=== PATIENT | female | born 1960 | race Caucasian/White ===

== ENCOUNTER → 2017-08-01 | Day surgery (SDC) | payer MEDICAID ==
[~2017-08-01] MED LIST: Lactated Ringers 1,000 ML IV SCH; Midazolam 1 MG/ML 2 ML SDV ONE; Propofol 200 MG/20 ML SDV ONE; fentaNYL 100 MCG/2 ML SDV ONE
[2017-08-01 09:43] VITALS: BP 136/75
--- NOTE | 2017-08-02 07:45 | OR ---
DATE OF PROCEDURE: 08/01/2017 PREOPERATIVE DIAGNOSIS: History of colon polyps. POSTOPERATIVE DIAGNOSES: Diverticulosis, history of colon polyps. PROCEDURE: Colonoscopy to the cecum. SURGEON: Jarad Morton MD. ANESTHESIA: IV anesthesia with monitored anesthesia care. INDICATION: This 57-year-old white female is referred for a colonoscopy. She has a history of colon polyps. Apparently, her last colonoscopic exam was done in 2012. I counseled her for the procedure including the risks and alternatives, and she gave her informed consent to proceed. DESCRIPTION OF PROCEDURE: The patient was placed in the left lateral decubitus position. IV anesthesia was administered by the Anesthesia Service. Time-out was held. A rectal exam was performed, which was unremarkable. The flexible video Olympus colonoscope was introduced through her anus, up her rectum, and out her colon all the way to the cecum. En route, we saw several left-sided diverticula. There was no bleeding or inflammation associated with any of them. Once the cecum was reached, the scope was slowly withdrawn, examining the mucosa throughout. No additional mucosal abnormalities were noted. The scope was retroflexed in the rectum with the distal rectum appearing unremarkable. The scope was straightened and removed. She tolerated the procedure well. Jarad Morton MD /[id number] MTDD
== END ==
LOC: JP.SDS 07:08
PROVIDERS: ATTEND Surgery
DX: Z12.11 Encounter for screening for malignant neoplasm of colon (principal); K57.30 Diverticulosis of large intestine without perforation or abscess without bleeding; Z86.010 Personal history of colon polyps; I10 Essential (primary) hypertension; E11.9 Type 2 diabetes mellitus without complications
CPT/HCPCS: 45378; J2250; J2704; J3010; J7120

== ENCOUNTER 2019-05-21 08:12 | Inpatient (IN) | payer MEDICAID ==
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
[2019-05-21] MEDS ORDERED: Acetaminophen/oxyCODONE 325-5 MG Tab PO ONE (10:28)
[2019-05-21] MEDS ORDERED: Insulin Regular, Human 100 Units/ML 3 ML Vial SUBCUT ONE (10:28)
[2019-05-21] MEDS ORDERED: Piperacillin/Tazobactam 3.375 GM in Sodium Chloride 0.9% 50 ML IV SCH (10:30)
--- NOTE | 2019-05-21 10:35 | US ---
VL Duplex Lwr Ext Veins Ltd Lt INDICATION: red swollen left leg. FINDINGS: Ultrasound examination of the lower extremity using Doppler and compressive technique demonstrates that the common femoral, femoral, and popliteal veins are patent, and negative for thrombus. The calf veins were segmentally visualized and are negative where seen. IMPRESSION: Negative for deep venous thrombosis.
--- NOTE | 2019-05-21 11:17 | PCM.HP ---
H&P History of Present Illness - General Date of Service: 05/21/19 Admit Problem/Dx: Admission Diagnosis/Problem Admission Diagnosis/Problem Cellulitis Source of Information: Patient, Provider, RN Notes Reviewed History Limitations: Reports: No Limitations - History of Present Illness Initial Comments - Free Text/Narative: Ms. Tom is a 59-year-old woman who was admitted through the emergency department with cellulitis of her right lower leg. Cellulitis has been present now for over a week and she has failed to outpatient courses of antibiotics with Augmentin and Septra. Despite oral antibiotic therapy there has been some progression in increased pain in the area of cellulitis. She has become progressively more weak and has experienced intermittent fevers and chills. White blood cell count is only modestly elevated but there is significant elevation in CRP. She does have known long-standing underlying diabetes mellitus. Left Lower Leg Pain Score (Numeric/FACES): 4 - Related Data Allergies/Adverse Reactions: Allergies Allergy/AdvReac Type Severity Reaction Status Date / Time morphine Allergy Nausea and Verified 05/21/19 08:28 Vomiting Home Medications: Home Meds Acetaminophen/Caffeine [Excedrin Tension Headache] 2 tab PO ASDIRECTED PRN 07/06 [History] metFORMIN [Glucophage] 1,000 mg PO BIDM 07/06/13 [History] Cholecalciferol (Vitamin D3) [Vitamin D3] 1,000 unit PO DAILY 07/28/17 [History] Losartan [Cozaar] 50 mg PO DAILY 07/28/17 [History] Simvastatin [Zocor] 40 mg PO DAILY 07/28/17 [History] Past Medical History HEENT History: Reports: None Cardiovascular History: Reports: Blood Clots/VTE/DVT, High Cholesterol, Hypertension Other Cardiovascular History: BLOOD CLOT HISTORY IN LEFT LEG SEVERAL YEARS AGO Respiratory History: Reports: None Gastrointestinal History: Reports: Colon Polyp 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: Reports: Renal Calculus PATHOLOGIST History: Reports: 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 History: Reports: None Neurological History: Reports: Migraines Psychiatric History: Reports: None Endocrine/Metabolic History: Reports: Diabetes, Type II Hematologic History: Reports: None Immunologic History: Reports: None Oncologic (Cancer) History: Reports: None Dermatologic History: Reports: None - Infectious Disease History Infectious Disease History: Reports: Chicken Pox - Past Surgical History HEENT Surgical History: Reports: None Cardiovascular Surgical History: Reports: None GI Surgical History: Reports: Colonoscopy Female Surgical History: Reports: Kidney stone extraction Other Female Surgeries/Procedures: BLASTED MY KIDNEY STONE Endocrine Surgical History: Reports: None Neurological Surgical History: Reports: None 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 Surgical History: Reports: None Social & Family History - Family History Family Medical History: Noncontributory - Tobacco Use Smoking Status *Q: Never Smoker - Caffeine Use Caffeine Use: Reports: Soda - Recreational Drug Use Recreational Drug Use: No H&P Review of Systems - Review of Systems: Review Of Systems: See Below General: Reports: Fever, Chills, Weakness, Fatigue, Decreased Appetite HEENT: Reports: No Symptoms Pulmonary: Reports: No Symptoms Cardiovascular: Reports: No Symptoms Gastrointestinal: Reports: No Symptoms 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: Reports: No Symptoms 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: Reports: No Symptoms Skin: Reports: Other (Erythema and tenderness right lower leg) Psychiatric: Reports: No Symptoms Neurological: Reports: No Symptoms Hematologic/Lymphatic: Reports: No Symptoms Immunologic: Reports: No Symptoms Exam - Exam Exam: See Below - Vital Signs Vital Signs: Last Vital Signs Temp 96.2 F 05/21/19 08:24 Pulse 105 H 05/21/19 10:53 Resp 16 05/21/19 10:53 BP 163/85 H 05/21/19 10:53 Pulse Ox 99 05/21/19 10:53 Weight: 192 lb 10.944 oz - Exam Quality Assessment: DVT Prophylaxis General: Alert, Oriented, Cooperative, Moderate Distress HEENT: Conjunctiva Clear, Hearing Intact, Mucosa Moist & [place], Normal Nasal Septum, Posterior Pharynx Clear, Pupils Equal Neck: Supple, Trachea Midline, +2 Carotid Pulse wo Bruit Lungs: Clear to Auscultation, Normal Respiratory Effort Cardiovascular: Regular Rate, Regular Rhythm, Normal S1, Normal S2. No: Systolic Murmur, Diastolic Murmur GI/Abdominal Exam: Soft, Non-Tender, No Organomegaly, No Distention Extremities: Increased Warmth, Redness Skin: Other (Intense erythema around the midportion of the right lower leg, 2 areas of palpable possible fluctuance with increased pain) Neurological: Cranial Nerves Intact, Strength Equal Bilateral, Normal Speech, Normal Tone, Sensation Intact. No: Focal Deficit Neuro Extensive - Mental Status: Alert, Oriented x3, Normal Mood/Affect, Normal Cognition, Memory Intact - Patient Data Lab Results Last 24 hrs: Laboratory Results - last 24 hr 05/21/19 05/21/19 05/21/19 Range/Units 08:43 08:43 08:43 WBC 11.0 (4.5-11.0) K/uL RBC 4.74 (3.30-5.50) M/uL Hgb 13.3 (12.0-15.0) g/dL Hct 41.2 (36.0-48.0) % MCV 87 (80-98) fL MCH 28 (27-31) pg MCHC 32 (32-36) % Plt Count 349 (150-400) K/uL Neut % (Auto) 77 H (36-66) % Lymph % (Auto) 15 L (24-44) % [place] % (Auto) 5 (2-6) % Eos % (Auto) 3 (2-4) % Baso % (Auto) 0 (0-1) % Sodium 134 L (140-148) mmol/L Potassium 4.2 (3.6-5.2) mmol/L Chloride 99 L (100-108) mmol/L Carbon Dioxide 23 (21-32) mmol/L Anion Gap 16.2 H (5.0-14.0) mmol/L BUN 12 (7-18) mg/dL Creatinine 1.0 (0.6-1.0) mg/dL Est Cr Clr Drug Dosing 47.32 mL/min Estimated GFR (MDRD) 57 L (>60) Glucose 345 H (74-106) mg/dL Lactic Acid (0.4-2.0) mmol/L Calcium 9.3 (8.5-10.1) mg/dL Total Bilirubin 0.3 (0.2-1.0) mg/dL AST 8 L (15-37) U/L ALT 6 L (12-78) U/L Alkaline Phosphatase 127 H (46-116) U/L C-Reactive Protein 11.62 H (0.0-0.3) mg/dL Total Protein 8.2 (6.4-8.2) g/dL Albumin 2.8 L (3.4-5.0) g/dL Globulin 5.4 H (2.3-3.5) g/dL Albumin/Globulin Ratio 0.5 L (1.2-2.2) 05/21/19 Range/Units 08:43 WBC (4.5-11.0) K/uL RBC (3.30-5.50) M/uL Hgb (12.0-15.0) g/dL Hct (36.0-48.0) % MCV (80-98) fL MCH (27-31) pg MCHC (32-36) % Plt Count (150-400) K/uL Neut % (Auto) (36-66) % Lymph % (Auto) (24-44) % [place] % (Auto) (2-6) % Eos % (Auto) (2-4) % Baso % (Auto) (0-1) % Sodium (140-148) mmol/L Potassium (3.6-5.2) mmol/L Chloride (100-108) mmol/L Carbon Dioxide (21-32) mmol/L Anion Gap (5.0-14.0) mmol/L BUN (7-18) mg/dL Creatinine (0.6-1.0) mg/dL Est Cr Clr Drug Dosing mL/min Estimated GFR (MDRD) (>60) Glucose (74-106) mg/dL Lactic Acid 1.8 (0.4-2.0) mmol/L Calcium (8.5-10.1) mg/dL Total Bilirubin (0.2-1.0) mg/dL AST (15-37) U/L ALT (12-78) U/L Alkaline Phosphatase (46-116) U/L C-Reactive Protein (0.0-0.3) mg/dL Total Protein (6.4-8.2) g/dL Albumin (3.4-5.0) g/dL Globulin (2.3-3.5) g/dL Albumin/Globulin Ratio (1.2-2.2) Result Diagrams: 05/21/19 08:43 05/21/19 08:43 *Q Meaningful Use (ADM) - VTE Risk Assess *Q Each Risk Factor Represents 1 Point: Obesity ( BMI > 25 kg/m2) Total Score 1 Point Risk Factors: 1 Each Risk Factor Represents 2 Points: Age 60 - 74 Years Total Score 2 Point Risk Factors: 2 Each Risk Factor Represents 3 Points: None Total Score 3 Point Risk Factors: 0 Each Risk Factor Represents 5 Points: None Total Score 5 Point Risk Factors: 0 Venous Thromboembolism Risk Factor Score *Q: 3 Problem List Initiated/Reviewed/Updated: Yes Orders Last 24hrs: Active Orders 24 hr Category Date Time Status Patient Status Manage Transfer [TRANSFER] Routine ADT 05/21/19 11:10 Ordered EKG Documentation Completion [RC] ASDIRECTED Care 05/21/19 08:37 Active Piperacillin/Tazobactam [Zosyn] 3.375 gm Med 05/21/19 10:30 Active Sodium Chloride 0.9% [Normal Saline] 50 ml IV Q6H Resuscitation Status Routine Resus Stat 05/21/19 11:11 Ordered EKG 12 Lead [EK] Routine Ther 05/21/19 08:37 Ordered Medication Orders Piperacillin Sod/Tazobactam (Sod 3.375 gm/ Sodium Chloride) 50 mls @ 100 mls/ hr IV Q6H DEE Last Admin: 05/21/19 10:48 Dose: 100 mls/hr Assessment/Plan Comment:: ASSESSMENT AND PLAN CELLULITIS RIGHT LOWER EXTREMITY-present for over one week, having failed outpatient antibiotic therapy -Blood Cultures pending -IV vancomycin and Zosyn pending culture results -Consult Dr. Miles for surgical opinion possible IND TYPE 2 DIABETES MELLITUS -Hold metformin -Low-dose sliding scale insulin -4 times a day glucometers MAINTENANCE ISSUES -DVT prophylaxis; Lovenox 40 mg subcutaneous daily -GI prophylaxis; not indicated -Luna catheter; not indicated -Nutrition; consistent carb diet -Nicotine dependence; not required CODE STATUS-FULL CODE ADMISSION STATUS-patient will be admitted to inpatient status, expect at least a 2 night hospital stay for evaluation and management of problems as outlined above. At the time of this admission I do not reasonably expected evaluation and management of this problem will require more than a 96 hour hospital stay. DISPOSITION-anticipate discharge to home after the hospital stay. PRIMARY CARE PROVIDER-Dr. Dumont
[2019-05-21] MEDS ORDERED: Sodium Chloride 0.9% 1,000 ML IV SCH (11:30)
[2019-05-21] MEDS ORDERED: Sodium Chloride 0.9% 10 ML Syringe FLUSH PRN (11:41)
[2019-05-21] MEDS ORDERED: 50% Dextrose in Water 50 ML Syringe IV PRN (11:41)
[2019-05-21] MEDS ORDERED: Polyethylene Glycol 3350 Powder 17 GM Packet PO PRN (11:41)
[2019-05-21] MEDS ORDERED: Glucose Gel 15 GM in 37.5 GM Tube PO PRN (11:41)
[2019-05-21] MEDS ORDERED: Vancomycin 1 GM SDV IV SCH (12:00)
[2019-05-21] MEDS: Lactated Ringers 1,000 ML IV SCH ×2 (12:56→23:41)
[2019-05-21] MEDS: Lactobacillus Rhamnosus GG (Probiotic) Cap PO SCH ×2 (13:41→21:31)
[2019-05-21] MEDS: oxyCODONE 5 MG Tab PO PRN (15:01)
[2019-05-21] MEDS: Insulin Lispro 100 Unit/ML 3 ML KwikPen SUBCUT SCH ×2 (17:22→21:31)
[2019-05-21] MEDS: Piperacillin/Tazobactam/Dext 3.375 GM in Premix Bag 1 BAG IV SCH ×2 (17:26→21:32)
[2019-05-21] MEDS: Enoxaparin 40 MG/0.4 ML Syringe SUBCUT SCH (17:26)
[2019-05-22] MEDS: oxyCODONE 5 MG Tab PO PRN ×4 (01:42→20:29)
[2019-05-22] MEDS: Acetaminophen 325 MG Tab PO PRN ×4 (01:42→20:28)
[2019-05-22] MEDS: Piperacillin/Tazobactam/Dext 3.375 GM in Premix Bag 1 BAG IV SCH ×4 (04:04→21:39)
[2019-05-22] MEDS: Insulin Lispro 100 Unit/ML 3 ML KwikPen SUBCUT SCH ×4 (08:02→21:38)
[2019-05-22] MEDS: Lactobacillus Rhamnosus GG (Probiotic) Cap PO SCH ×2 (08:03→20:28)
[2019-05-22] MEDS: Simvastatin 20 MG Tab PO SCH (08:04)
[2019-05-22] MEDS: Losartan 50 MG Tab PO SCH (08:04)
--- NOTE | 2019-05-22 08:52 | CRLUS ---
Indication: Left leg cellulitis. Technique: Ultrasound left lower extremity nonvascular. Comparison: 05/21/2019. Findings/Impression: Unremarkable exam. No fluid collections. Adjacent venous structures fully compress. Dictated by Claudy Colon MD @ May 22 2019 8:48AM Signed by Dr. Claudy Colon @ May 22 2019 8:51AM
--- NOTE | 2019-05-22 09:34 | CONS ---
DATE OF SERVICE: 05/22/2019 REFERRING PHYSICIAN: CONSULTING PHYSICIAN: Margoth Sheth PA-C HISTORY OF PRESENT ILLNESS: Cherrie is a 59-year-old female, who Gilbert Person MD, requested a surgical consult for cellulitis of left lower leg. Cherrie states that she had noticed her leg becoming swollen, red, and painful and she was on Augmentin and Septra about a week ago. She has diabetes, but has not been taking anything for her blood sugars, she thinks for about one year. She was admitted through the emergency room on 05/21/2019, currently on oxycodone for pain, piperacillin and vancomycin antibiotic therapy. Temp max has been 99.5. Pain on a pain scale of 1 to 10 has been a 7/10. Oral intake was 960. Urine output was 2950. She has had 100% of lunch and dinner. ALLERGIES: MORPHINE. HOME MEDICATION: 1. Excedrin Tension Headache p.r.n. 2. Glucophage a 1000 mg b.i.d., which she has not been taking. 3. Vitamin D3 5000 international units daily. 4. Losartan (Cozaar) 50 mg p.o. daily. 5. Zocor 40 mg p.o. daily. PAST MEDICAL HISTORY: 1. Diabetes. 2. Hypercholesterolemia. 3. Hypertension. 4. DVT left leg about 10 years ago. 5. Kidney stones. 6. Colon polyp. 7. Migraine headaches. PAST SURGICAL HISTORY: Kidney stone extraction. No abdominal surgeries. SOCIAL HISTORY: Does not smoke. Caffeine, use soda. Alcohol, none. Employed at [employer] and is single. FAMILY HISTORY: Negative for any heart disease, lung disease, diabetes, or cancer. REVIEW OF SYSTEMS: CONSTITUTIONAL: Reports fever, chills, weakness, fatigue, decreased appetite, weight has been stable. HEENT: Negative for headache, dizziness, or loss of coordination. LUNGS: No cough. CARDIOVASCULAR: No chest pain, shortness of breath, fast or irregular heartbeat. GI: No nausea, vomiting, diarrhea, constipation, red or black stools. : No UTI signs and symptoms. MUSCULOSKELETAL: Reports left lower leg pain, swelling, redness, area of skin discolorations, and swelling, which extends in the anterior lower leg and radiates around to the calf of her leg areas marked on admission. SKIN: As above. PSYCHIATRIC: Denies any depression, anxiety, or insomnia. NEUROLOGIC: No headache, dizziness, or loss of coordination. Remainder of review of systems negative for any pertinent positives and negatives. OBJECTIVE: GENERAL: Cherrie Tom is a pleasant 59-year-old female. VITAL SIGNS: Height 5 feet 2 inches, weight is 192 pounds. TPR 97, 92, 16. Blood pressure 128/47. HEENT: Negative. NECK: Supple. HEART: Regular rate and rhythm. LUNGS: Clear. ABDOMEN: Soft and nontender. EXTREMITIES: Left lower extremity is marked with a marker. The area of pinkness has decreased, remains to be quite tender in the center. Dr. Miles has examined the patient. There are dark areas. Pulse, pedal pulse on right leg is negative. NEUROLOGIC: Intact cranial nerves II through XII. PSYCHIATRIC: Mood and affect appropriate. SKIN: With the exception of left lower leg is negative for any rash or changes in moles. ASSESSMENT: 1. Cellulitis, left lower leg. 2. Diabetes, uncontrolled. 3. Hypertension. 4. Spinal stenosis in lumbar region. PLAN: 1. Check ultrasound of left lower leg stat. 2. N.p.o. 3. Call Mumtaz Miles with results of ultrasound. Thank you for this consultation Margoth Sheth PA-C. Margoth Sheth PA-C /[phone]
--- NOTE | 2019-05-22 13:42 | PCM.PN ---
- General Info Date of Service: 05/22/19 Subjective Update: Ms. Tom has done fairly well since admission, vital signs have been stable and she has remained afebrile. There has been improvement in area of cellulitis when compared to admission, area remains fairly tender. Functional Status: Reports: Tolerating Diet, Ambulating, Urinating - Review of Systems General: Denies: Fever, Weakness, Chills Cardiovascular: Reports: No Symptoms Gastrointestinal: Reports: No Symptoms 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: Reports: No Symptoms Skin: Reports: Other (Erythema left lower extremity) - Patient Data Vitals - Most Recent: Last Vital Signs Temp 97.3 F 05/22/19 10:46 Pulse 102 H 05/22/19 10:46 Resp 16 05/22/19 10:46 BP 160/74 H 05/22/19 10:46 Pulse Ox 98 05/22/19 10:46 Weight - Most Recent: 196 lb I&O - Last 24 Hours: Intake & Output 05/21/19 05/22/19 05/22/19 22:59 06:59 14:59 Intake Total 2064 1316 480 Output Total 850 1100 1800 Balance 1214 216 -1320 Lab Results Last 24 Hours: Laboratory Results - last 24 hr 05/22/19 05/22/19 Range/Units 05:03 05:03 WBC 10.6 (4.5-11.0) K/uL RBC 3.94 (3.30-5.50) M/uL Hgb 11.1 L D (12.0-15.0) g/dL Hct 34.8 L (36.0-48.0) % MCV 88 (80-98) fL MCH 28 (27-31) pg MCHC 32 (32-36) % Plt Count 304 (150-400) K/uL Neut % (Auto) 70 H (36-66) % Lymph % (Auto) 20 L (24-44) % [place] % (Auto) 7 H (2-6) % Eos % (Auto) 3 (2-4) % Baso % (Auto) 0 (0-1) % Sodium 136 L (140-148) mmol/L Potassium 4.3 (3.6-5.2) mmol/L Chloride 102 (100-108) mmol/L Carbon Dioxide 24 (21-32) mmol/L Anion Gap 14.3 H (5.0-14.0) mmol/L BUN 12 (7-18) mg/dL Creatinine 0.8 (0.6-1.0) mg/dL Est Cr Clr Drug Dosing 59.15 mL/min Estimated GFR (MDRD) > 60 (>60) Glucose 245 H (74-106) mg/dL Calcium 8.7 (8.5-10.1) mg/dL Brian Results Last 24 Hours: Microbiology 05/21/19 11:50 Aerobic Blood Culture - Preliminary Blood - Arm, Left NO GROWTH AFTER 1 DAY Anaerobic Blood Culture - Preliminary NO GROWTH AFTER 1 DAY 05/21/19 12:00 Aerobic Blood Culture - Preliminary Blood - Arm, Left NO GROWTH AFTER 1 DAY Anaerobic Blood Culture - Preliminary NO GROWTH AFTER 1 DAY Med Orders - Current: Current Medications Acetaminophen (Tylenol) 650 mg PO Q4H PRN PRN Reason: Pain (Mild 1-3)/fever Last Admin: 05/22/19 10:58 Dose: 650 mg Dextrose (Glutose 15) 15 gm PO ONETIME PRN PRN Reason: Hypoglycemia Dextrose/Water (Dextrose 50% In Water) 50 ml IV ONETIME PRN PRN Reason: Hypoglycemia Enoxaparin Sodium (Lovenox) 40 mg SUBCUT Q24H [facility] Last Admin: 05/21/19 17:26 Dose: 40 mg Piperacillin/Tazobactam/ (Dextrose 3.375 gm/ Premix) 50 mls @ 100 mls/hr IV Q6H [facility] Last Admin: 05/22/19 09:47 Dose: 100 mls/hr Vancomycin HCl 1.25 gm/ Sodium (Chloride) 250 mls @ 167 mls/hr IV Q12H [facility] Insulin Human Lispro (Humalog) 0 unit SUBCUT QIDACANDBED [facility]; Protocol Last Admin: 05/22/19 11:40 Dose: 2 units Lactobacillus Rhamnosus (Culturelle) 1 cap PO BID [facility] Last Admin: 05/22/19 08:03 Dose: 1 cap Losartan Potassium (Cozaar) 50 mg PO DAILY [facility] Last Admin: 05/22/19 08:04 Dose: 50 mg Ondansetron HCl (Zofran) 4 mg IV Q4H PRN PRN Reason: Nausea/Vomiting Oxycodone HCl (Oxycodone) 5 mg PO Q4H PRN PRN Reason: Pain (moderate 4-6) Last Admin: 05/22/19 10:58 Dose: 5 mg Polyethylene Glycol (Miralax) 17 gm PO DAILY PRN PRN Reason: Constipation Simvastatin (Zocor) 40 mg PO DAILY [facility] Last Admin: 05/22/19 08:04 Dose: 40 mg Sodium Chloride (Saline Flush) 10 ml FLUSH ASDIRECTED PRN PRN Reason: Keep Vein Open Discontinued Medications Piperacillin Sod/Tazobactam (Sod 3.375 gm/ Sodium Chloride) 50 mls @ 100 mls/ hr IV Q6H [facility] Last Admin: 05/21/19 10:48 Dose: 100 mls/hr Sodium Chloride (Normal Saline) 1,000 mls @ 999 mls/hr IV ASDIRECTED [facility] Lactated Ringer's (Ringers, Lactated) 1,000 mls @ 125 mls/hr IV ASDIRECTED [facility] Last Admin: 05/21/19 23:41 Dose: 125 mls/hr Vancomycin HCl 1.25 gm/ Sodium (Chloride) 250 mls @ 250 mls/hr IV Q18H [facility] Last Admin: 05/22/19 07:39 Dose: 250 mls/hr Vancomycin HCl 1.75 gm/ Sodium (Chloride) 250 mls @ 166.667 mls/hr IV ONETIME ONE Stop: 05/21/19 14:29 Last Admin: 05/21/19 13:41 Dose: 166.667 mls/hr Insulin Human Regular (Humulin R) 5 unit SUBCUT ONETIME ONE Stop: 05/21/19 10:29 Last Admin: 05/21/19 10:45 Dose: 5 units Oxycodone/Acetaminophen (Percocet 325-5 Mg) 1 tab PO ONETIME ONE Stop: 05/21/19 10:29 Last Admin: 05/21/19 10:47 Dose: 1 tab Vancomycin HCl (Vancomycin) 1 gm IV .PHARMACY TO DOSE [facility] - Exam General: Alert, Oriented, Cooperative, Mild Distress Lungs: Clear to Auscultation, Normal Respiratory Effort Cardiovascular: Regular Rate, Regular Rhythm, No Murmurs GI/Abdominal Exam: Soft, Non-Tender, No Organomegaly, No Distention Skin: Other (Area of erythema has improved when compared to admission, less tender and warm.) - Problem List Review Problem List Initiated/Reviewed/Updated: Yes - My Orders Last 24 Hours: My Active Orders 05/21/19 13:00 Lactobacillus Rhamnosus GG [Culturelle] 1 cap PO BID 05/21/19 16:00 Enoxaparin [Lovenox] 40 mg SUBCUT Q24H Piperacillin/Tazobactam/Dext [Zosyn in Dextrose Iso-Osmotic 3.375 GM] 3.375 gm Premix Bag 1 bag IV Q6H 05/21/19 17:00 Insulin Lispro [HumaLOG] See Protocol SUBCUT QIDACANDBED 05/22/19 09:00 Losartan [Cozaar] 50 mg PO DAILY Simvastatin [Zocor] 40 mg PO DAILY 05/22/19 13:32 Convert IV to Saline Lock [OM.PC] Routine 05/22/19 16:30 GLUCOSE POC LAB TO COLLECT [POC] QIDACANDBED 05/22/19 18:00 Vancomycin 1.25 gm Sodium Chloride 0.9% [Normal Saline] 250 ml IV Q12H 05/22/19 21:00 GLUCOSE POC LAB TO COLLECT [POC] QIDACANDBED 05/22/19 Lunch Consistent Carbohydrate Diet [DIET] 05/23/19 05:00 BASIC METABOLIC PANEL,BMP [CHEM] Timed 05/23/19 07:30 GLUCOSE POC LAB TO COLLECT [POC] QIDACANDBED 05/23/19 11:30 GLUCOSE POC LAB TO COLLECT [POC] QIDACANDBED 05/23/19 16:30 GLUCOSE POC LAB TO COLLECT [POC] QIDACANDBED 05/23/19 21:00 GLUCOSE POC LAB TO COLLECT [POC] QIDACANDBED 05/24/19 07:30 GLUCOSE POC LAB TO COLLECT [POC] QIDACANDBED 05/24/19 11:30 GLUCOSE POC LAB TO COLLECT [POC] QIDACANDBED 05/24/19 16:30 GLUCOSE POC LAB TO COLLECT [POC] QIDACANDBED 05/24/19 21:00 GLUCOSE POC LAB TO COLLECT [POC] QIDACANDBED 05/25/19 07:30 GLUCOSE POC LAB TO COLLECT [POC] QIDACANDBED 05/25/19 11:30 GLUCOSE POC LAB TO COLLECT [POC] QIDACANDBED 05/25/19 16:30 GLUCOSE POC LAB TO COLLECT [POC] QIDACANDBED 05/25/19 21:00 GLUCOSE POC LAB TO COLLECT [POC] QIDACANDBED 05/26/19 07:30 GLUCOSE POC LAB TO COLLECT [POC] QIDACANDBED 05/26/19 11:30 GLUCOSE POC LAB TO COLLECT [POC] QIDACANDBED - Plan Plan:: ASSESSMENT AND PLAN CELLULITIS RIGHT LOWER EXTREMITY-afebrile since admission with normalization of white blood cell count. Area of cellulitis has improved when compared to what was noted on admission. Her son obtained this morning shows no evidence of fluid collection or abscess. -Blood Cultures pending -IV vancomycin and Zosyn pending culture results -Surgical follow-up per Dr. Miles TYPE 2 DIABETES MELLITUS -Hold metformin -Low-dose sliding scale insulin -4 times a day glucometers MAINTENANCE ISSUES -DVT prophylaxis; Lovenox 40 mg subcutaneous daily -GI prophylaxis; not indicated -Luna catheter; not indicated -Nutrition; consistent carb diet -Nicotine dependence; not required CODE STATUS-FULL CODE ADMISSION STATUS-patient will be admitted to inpatient status, expect at least a 2 night hospital stay for evaluation and management of problems as outlined above. At the time of this admission I do not reasonably expected evaluation and management of this problem will require more than a 96 hour hospital stay. DISPOSITION-anticipate discharge to home after the hospital stay. PRIMARY CARE PROVIDER-Dr. Dumont
[2019-05-22] MEDS: Enoxaparin 40 MG/0.4 ML Syringe SUBCUT SCH (15:50)
[2019-05-23] MEDS: oxyCODONE 5 MG Tab PO PRN ×3 (00:51→10:44)
[2019-05-23] MEDS: Piperacillin/Tazobactam/Dext 3.375 GM in Premix Bag 1 BAG IV SCH ×4 (03:20→21:03)
[2019-05-23] MEDS: Acetaminophen 325 MG Tab PO PRN ×2 (04:03→10:43)
[2019-05-23] MEDS: Insulin Lispro 100 Unit/ML 3 ML KwikPen SUBCUT SCH ×4 (08:02→21:03)
[2019-05-23] MEDS: Simvastatin 20 MG Tab PO SCH (08:04)
[2019-05-23] MEDS: Losartan 50 MG Tab PO SCH (08:04)
[2019-05-23] MEDS: Lactobacillus Rhamnosus GG (Probiotic) Cap PO SCH ×2 (08:04→20:56)
[2019-05-23] MEDS: Ondansetron 4 MG/2 ML SDV IV PRN ×2 (08:42→14:28)
--- NOTE | 2019-05-23 09:18 | PN ---
DATE OF SERVICE: 05/23/2019 SUBJECTIVE: Cherrie is reevaluated for cellulitis of left leg. Ultrasound was reviewed with the patient. REVIEW OF SYSTEMS: Negative for any pertinent positives or negatives. Blood sugars; 265, 242, and 305. The redness in her left leg is decreased, and it is less swollen, remains to be quite painful when up ambulating. No fever. OBJECTIVE: GENERAL: Cherrie Tom is a pleasant 59-year-old female, who is alert and orientated. VITAL SIGNS: TPR is 98.6, 89, 15. Blood pressure 140/73. HEENT: Negative. NECK: Supple. HEART: Regular rate and rhythm. LUNGS: Clear. EXTREMITIES: Left anterior lower leg remains to be less swollen, tender. There is a fluctuant area in the mid anterior leg. No break in skin. The actual redness is decreasing. ASSESSMENT: Cellulitis, left leg. PLAN: 1. Continue same treatment. 2. We will evaluate p.r.n. or in the a.m. Margoth Sheth PA-C /[phone]
--- NOTE | 2019-05-23 09:52 | PCM.PN ---
- General Info Date of Service: 05/23/19 Subjective Update: Ms. Tom has been stable since yesterday, good vital signs and no fever. There has been further improvement in the area of cellulitis in the left lower extremity. Functional Status: Reports: Pain Controlled, Tolerating Diet, Urinating - Review of Systems General: Reports: Weakness. Denies: Fever, Chills Pulmonary: Reports: No Symptoms Cardiovascular: Reports: No Symptoms Gastrointestinal: Reports: No Symptoms - Patient Data Vitals - Most Recent: Last Vital Signs Temp 96.1 F 05/23/19 07:52 Pulse 89 05/23/19 07:52 Resp 18 05/23/19 07:52 BP 156/78 H 05/23/19 08:04 Pulse Ox 93 L 05/23/19 07:52 Weight - Most Recent: 196 lb I&O - Last 24 Hours: Intake & Output 05/22/19 05/23/19 05/23/19 22:59 06:59 14:59 Intake Total 590 300 Output Total 600 Balance -10 300 Lab Results Last 24 Hours: Laboratory Results - last 24 hr 05/23/19 Range/Units 04:25 Sodium 135 L (140-148) mmol/L Potassium 4.1 (3.6-5.2) mmol/L Chloride 100 (100-108) mmol/L Carbon Dioxide 24 (21-32) mmol/L Anion Gap 15.1 H (5.0-14.0) mmol/L BUN 14 (7-18) mg/dL Creatinine 0.8 (0.6-1.0) mg/dL Est Cr Clr Drug Dosing 58.63 mL/min Estimated GFR (MDRD) > 60 (>60) Glucose 285 H (74-106) mg/dL Calcium 9.2 (8.5-10.1) mg/dL Brian Results Last 24 Hours: Microbiology 05/21/19 11:50 Aerobic Blood Culture - Preliminary Blood - Arm, Left NO GROWTH AFTER 1 DAY Anaerobic Blood Culture - Preliminary NO GROWTH AFTER 1 DAY 05/21/19 12:00 Aerobic Blood Culture - Preliminary Blood - Arm, Left NO GROWTH AFTER 1 DAY Anaerobic Blood Culture - Preliminary NO GROWTH AFTER 1 DAY Med Orders - Current: Current Medications Acetaminophen (Tylenol) 650 mg PO Q4H PRN PRN Reason: Pain (Mild 1-3)/fever Last Admin: 05/23/19 04:03 Dose: 650 mg Acetaminophen/Caffeine (Excedrin Tension Headache) 2 tab PO Q6H PRN PRN Reason: Headache Dextrose (Glutose 15) 15 gm PO ONETIME PRN PRN Reason: Hypoglycemia Dextrose/Water (Dextrose 50% In Water) 50 ml IV ONETIME PRN PRN Reason: Hypoglycemia Enoxaparin Sodium (Lovenox) 40 mg SUBCUT Q24H [facility] Last Admin: 05/22/19 15:50 Dose: 40 mg Piperacillin/Tazobactam/ (Dextrose 3.375 gm/ Premix) 50 mls @ 100 mls/hr IV Q6H [facility] Last Admin: 05/23/19 03:20 Dose: 100 mls/hr Insulin Human Lispro (Humalog) 0 unit SUBCUT QIDACANDBED [facility]; Protocol Last Admin: 05/23/19 08:02 Dose: 3 units Lactobacillus Rhamnosus (Culturelle) 1 cap PO BID [facility] Last Admin: 05/23/19 08:04 Dose: 1 cap Losartan Potassium (Cozaar) 50 mg PO DAILY [facility] Last Admin: 05/23/19 08:04 Dose: 50 mg Metformin HCl (Glucophage) 1,000 mg PO BIDM [facility] Ondansetron HCl (Zofran) 4 mg IV Q4H PRN PRN Reason: Nausea/Vomiting Last Admin: 05/23/19 08:42 Dose: 4 mg Oxycodone HCl (Oxycodone) 5 mg PO Q4H PRN PRN Reason: Pain (moderate 4-6) Last Admin: 05/23/19 05:28 Dose: 5 mg Polyethylene Glycol (Miralax) 17 gm PO DAILY PRN PRN Reason: Constipation Simvastatin (Zocor) 40 mg PO DAILY [facility] Last Admin: 05/23/19 08:04 Dose: 40 mg Sodium Chloride (Saline Flush) 10 ml FLUSH ASDIRECTED PRN PRN Reason: Keep Vein Open Discontinued Medications Piperacillin Sod/Tazobactam (Sod 3.375 gm/ Sodium Chloride) 50 mls @ 100 mls/ hr IV Q6H [facility] Last Admin: 05/21/19 10:48 Dose: 100 mls/hr Sodium Chloride (Normal Saline) 1,000 mls @ 999 mls/hr IV ASDIRECTED [facility] Lactated Ringer's (Ringers, Lactated) 1,000 mls @ 125 mls/hr IV ASDIRECTED [facility] Last Admin: 05/21/19 23:41 Dose: 125 mls/hr Vancomycin HCl 1.25 gm/ Sodium (Chloride) 250 mls @ 250 mls/hr IV Q18H [facility] Last Admin: 05/22/19 07:39 Dose: 250 mls/hr Vancomycin HCl 1.75 gm/ Sodium (Chloride) 250 mls @ 166.667 mls/hr IV ONETIME ONE Stop: 05/21/19 14:29 Last Admin: 05/21/19 13:41 Dose: 166.667 mls/hr Vancomycin HCl 1.25 gm/ Sodium (Chloride) 250 mls @ 167 mls/hr IV Q12H [facility] Last Admin: 05/23/19 05:21 Dose: 167 mls/hr Insulin Human Regular (Humulin R) 5 unit SUBCUT ONETIME ONE Stop: 05/21/19 10:29 Last Admin: 05/21/19 10:45 Dose: 5 units Oxycodone/Acetaminophen (Percocet 325-5 Mg) 1 tab PO ONETIME ONE Stop: 05/21/19 10:29 Last Admin: 05/21/19 10:47 Dose: 1 tab Vancomycin HCl (Vancomycin) 1 gm IV .PHARMACY TO DOSE [facility] - Exam General: Alert, Oriented, Cooperative, Mild Distress Lungs: Clear to Auscultation, Normal Respiratory Effort Cardiovascular: Regular Rate, Regular Rhythm, No Murmurs GI/Abdominal Exam: Soft, Non-Tender, No Organomegaly, No Distention Skin: Other (Area of cellulitis left lower extremity has further improved with less erythema and tenderness.) - Problem List Review Problem List Initiated/Reviewed/Updated: Yes - My Orders Last 24 Hours: My Active Orders 05/22/19 09:00 Losartan [Cozaar] 50 mg PO DAILY Simvastatin [Zocor] 40 mg PO DAILY 05/22/19 13:32 Convert IV to Saline Lock [OM.PC] Routine 05/22/19 Lunch Consistent Carbohydrate Diet [DIET] 05/23/19 09:48 Acetaminophen/Caffeine [Excedrin Tension Headache] 2 tab PO Q6H PRN 05/23/19 11:30 GLUCOSE POC LAB TO COLLECT [POC] QIDACANDBED 05/23/19 16:30 GLUCOSE POC LAB TO COLLECT [POC] QIDACANDBED 05/23/19 17:00 metFORMIN [Glucophage] 1,000 mg PO BIDM 05/23/19 21:00 GLUCOSE POC LAB TO COLLECT [POC] QIDACANDBED 05/24/19 07:30 GLUCOSE POC LAB TO COLLECT [POC] QIDACANDBED 05/24/19 11:30 GLUCOSE POC LAB TO COLLECT [POC] QIDACANDBED 05/24/19 16:30 GLUCOSE POC LAB TO COLLECT [POC] QIDACANDBED 05/24/19 21:00 GLUCOSE POC LAB TO COLLECT [POC] QIDACANDBED 05/25/19 07:30 GLUCOSE POC LAB TO COLLECT [POC] QIDACANDBED 05/25/19 11:30 GLUCOSE POC LAB TO COLLECT [POC] QIDACANDBED 05/25/19 16:30 GLUCOSE POC LAB TO COLLECT [POC] QIDACANDBED 05/25/19 21:00 GLUCOSE POC LAB TO COLLECT [POC] QIDACANDBED 05/26/19 07:30 GLUCOSE POC LAB TO COLLECT [POC] QIDACANDBED 05/26/19 11:30 GLUCOSE POC LAB TO COLLECT [POC] QIDACANDBED - Plan Plan:: ASSESSMENT AND PLAN CELLULITIS LEFT LOWER EXTREMITY-afebrile since admission with normalization of white blood cell count. Area of cellulitis has improved when compared to what was noted on admission. -Blood Cultures remain negative -Discontinue IV vancomycin -IV Zosyn pending -Surgical follow-up per Dr. Miles TYPE 2 DIABETES MELLITUS -Resume metformin 1 g by mouth twice a day -Low-dose sliding scale insulin -4 times a day glucometers MAINTENANCE ISSUES -DVT prophylaxis; Lovenox 40 mg subcutaneous daily -GI prophylaxis; not indicated -Luna catheter; not indicated -Nutrition; consistent carb diet -Nicotine dependence; not required CODE STATUS-FULL CODE ADMISSION STATUS-patient will be admitted to inpatient status, expect at least a 2 night hospital stay for evaluation and management of problems as outlined above. At the time of this admission I do not reasonably expected evaluation and management of this problem will require more than a 96 hour hospital stay. DISPOSITION-anticipate discharge to home after the hospital stay. PRIMARY CARE PROVIDER-Dr. Dumont
[2019-05-23] MEDS: Acetaminophen/Caffeine 500-65 MG Tab PO PRN ×2 (14:29→20:56)
[2019-05-23] MEDS: Enoxaparin 40 MG/0.4 ML Syringe SUBCUT SCH (16:37)
[2019-05-23] MEDS: metFORMIN 500 MG Tab PO SCH (17:33)
[2019-05-24] MEDS: Piperacillin/Tazobactam/Dext 3.375 GM in Premix Bag 1 BAG IV SCH ×4 (03:51→21:21)
[2019-05-24] MEDS: Acetaminophen 325 MG Tab PO PRN ×2 (03:54→15:23)
[2019-05-24] MEDS: oxyCODONE 5 MG Tab PO PRN ×3 (03:55→18:35)
--- NOTE | 2019-05-24 08:03 | PN ---
DATE OF SERVICE: 05/24/2019 SUBJECTIVE: Cherrie has been afebrile. Oral intake adequate. She had one emesis 400 mL. Blood sugars have been elevated starting at 0800, 273; 1151, 227; 1644, 316; 2100, 317. She states her leg does feel better. It does increase in pain and the color gets darker red when she is up ambulating. REVIEW OF SYSTEMS: Remainder of review of systems is negative for any pertinent positives and negatives. OBJECTIVE: GENERAL: Cherrie Tom is a 59-year-old female. She is alert and orientated. VITAL SIGNS: TPR 98.1, 84, 18, blood pressure 158/81. SKIN: The area that is marked for the redness, the cellulitis has decreased. She has an area of fluctuance that looks like it may need to be drained unless it decreases in the next 24 hours. ASSESSMENT: Cellulitis, left leg, diabetes. PLAN: NPO after midnight in case Mumtaz Miles MD would take to the OR to have an incision and drainage of that area of mid left lower leg. We will evaluate p.r.n. or in a.m. Margoth Sheth PA-C /[phone]
[2019-05-24] MEDS: Insulin Lispro 100 Unit/ML 3 ML KwikPen SUBCUT SCH ×4 (08:18→21:22)
[2019-05-24] MEDS: metFORMIN 500 MG Tab PO SCH ×2 (08:35→16:37)
[2019-05-24] MEDS: Lactobacillus Rhamnosus GG (Probiotic) Cap PO SCH ×2 (09:22→21:21)
[2019-05-24] MEDS: Simvastatin 20 MG Tab PO SCH (09:22)
[2019-05-24] MEDS: Losartan 50 MG Tab PO SCH (09:22)
--- NOTE | 2019-05-24 10:17 | PCM.PN ---
- General Info Date of Service: 05/24/19 Subjective Update: Ms. Tom has been stable since yesterday, no significant temperature elevation with stable vital signs. She has a persistent area of erythema was some underlying fluctuance on the anterior aspect of lower leg. Otherwise cellulitis has essentially resolved. Functional Status: Reports: Tolerating Diet, Ambulating, Urinating - Review of Systems General: Denies: Fever, Weakness, Chills Pulmonary: Reports: No Symptoms Cardiovascular: Reports: No Symptoms Gastrointestinal: Reports: No Symptoms Skin: Reports: Other (Eryethema anterior aspect L lower leg) - Patient Data Vitals - Most Recent: Last Vital Signs Temp 96.1 F 05/24/19 07:49 Pulse 74 05/24/19 07:49 Resp 16 05/24/19 07:49 BP 134/66 05/24/19 09:22 Pulse Ox 98 05/24/19 07:49 Weight - Most Recent: 196 lb I&O - Last 24 Hours: Intake & Output 05/23/19 05/24/19 05/24/19 22:59 06:59 14:59 Intake Total 650 50 240 Output Total 1950 700 Balance -1300 -650 240 Brian Results Last 24 Hours: Microbiology 05/21/19 12:00 Aerobic Blood Culture - Preliminary Blood - Arm, Left NO GROWTH AFTER 2 DAYS Anaerobic Blood Culture - Preliminary NO GROWTH AFTER 2 DAYS 05/21/19 11:50 Aerobic Blood Culture - Preliminary Blood - Arm, Left NO GROWTH AFTER 2 DAYS Anaerobic Blood Culture - Preliminary NO GROWTH AFTER 2 DAYS Med Orders - Current: Current Medications Acetaminophen (Tylenol) 650 mg PO Q4H PRN PRN Reason: Pain (Mild 1-3)/fever Last Admin: 05/24/19 03:54 Dose: 650 mg Acetaminophen/Caffeine (Excedrin Tension Headache) 2 tab PO Q6H PRN PRN Reason: Headache Last Admin: 05/23/19 20:56 Dose: 2 tab Dextrose (Glutose 15) 15 gm PO ONETIME PRN PRN Reason: Hypoglycemia Dextrose/Water (Dextrose 50% In Water) 50 ml IV ONETIME PRN PRN Reason: Hypoglycemia Enoxaparin Sodium (Lovenox) 40 mg SUBCUT Q24H [facility] Last Admin: 05/23/19 16:37 Dose: 40 mg Piperacillin/Tazobactam/ (Dextrose 3.375 gm/ Premix) 50 mls @ 100 mls/hr IV Q6H [facility] Last Admin: 05/24/19 09:31 Dose: 100 mls/hr Sodium Chloride (Normal Saline) 1,000 mls @ 75 mls/hr IV ASDIRECTED [facility] Insulin Human Lispro (Humalog) 0 unit SUBCUT QIDACANDBED [facility]; Protocol Last Admin: 05/24/19 08:18 Dose: 2 units Lactobacillus Rhamnosus (Culturelle) 1 cap PO BID [facility] Last Admin: 05/24/19 09:22 Dose: 1 cap Losartan Potassium (Cozaar) 50 mg PO DAILY [facility] Last Admin: 05/24/19 09:22 Dose: 50 mg Metformin HCl (Glucophage) 1,000 mg PO BIDM [facility] Last Admin: 05/24/19 08:35 Dose: 1,000 mg Ondansetron HCl (Zofran) 4 mg IV Q4H PRN PRN Reason: Nausea/Vomiting Last Admin: 05/23/19 14:28 Dose: 4 mg Oxycodone HCl (Oxycodone) 5 mg PO Q4H PRN PRN Reason: Pain (moderate 4-6) Last Admin: 05/24/19 03:55 Dose: 5 mg Polyethylene Glycol (Miralax) 17 gm PO DAILY PRN PRN Reason: Constipation Simvastatin (Zocor) 40 mg PO DAILY [facility] Last Admin: 05/24/19 09:22 Dose: 40 mg Sodium Chloride (Saline Flush) 10 ml FLUSH ASDIRECTED PRN PRN Reason: Keep Vein Open Discontinued Medications Piperacillin Sod/Tazobactam (Sod 3.375 gm/ Sodium Chloride) 50 mls @ 100 mls/ hr IV Q6H [facility] Last Admin: 05/21/19 10:48 Dose: 100 mls/hr Sodium Chloride (Normal Saline) 1,000 mls @ 999 mls/hr IV ASDIRECTED [facility] Lactated Ringer's (Ringers, Lactated) 1,000 mls @ 125 mls/hr IV ASDIRECTED [facility] Last Admin: 05/21/19 23:41 Dose: 125 mls/hr Vancomycin HCl 1.25 gm/ Sodium (Chloride) 250 mls @ 250 mls/hr IV Q18H [facility] Last Admin: 05/22/19 07:39 Dose: 250 mls/hr Vancomycin HCl 1.75 gm/ Sodium (Chloride) 250 mls @ 166.667 mls/hr IV ONETIME ONE Stop: 05/21/19 14:29 Last Admin: 05/21/19 13:41 Dose: 166.667 mls/hr Vancomycin HCl 1.25 gm/ Sodium (Chloride) 250 mls @ 167 mls/hr IV Q12H [facility] Last Admin: 05/23/19 05:21 Dose: 167 mls/hr Insulin Human Regular (Humulin R) 5 unit SUBCUT ONETIME ONE Stop: 05/21/19 10:29 Last Admin: 05/21/19 10:45 Dose: 5 units Oxycodone/Acetaminophen (Percocet 325-5 Mg) 1 tab PO ONETIME ONE Stop: 05/21/19 10:29 Last Admin: 05/21/19 10:47 Dose: 1 tab Vancomycin HCl (Vancomycin) 1 gm IV .PHARMACY TO DOSE [facility] - Exam General: Alert, Oriented, Cooperative, Mild Distress Lungs: Clear to Auscultation, Normal Respiratory Effort Cardiovascular: Regular Rate, Regular Rhythm, No Murmurs GI/Abdominal Exam: Soft, Non-Tender, No Organomegaly, No Distention Extremities: Increased Warmth, Redness, Other (Erythema anterior aspect L lower leg) - Problem List Review Problem List Initiated/Reviewed/Updated: Yes - My Orders Last 24 Hours: My Active Orders 05/23/19 09:48 Acetaminophen/Caffeine [Excedrin Tension Headache] 2 tab PO Q6H PRN 05/23/19 17:00 metFORMIN [Glucophage] 1,000 mg PO BIDM 05/24/19 11:30 GLUCOSE POC LAB TO COLLECT [POC] QIDACANDBED 05/24/19 16:30 GLUCOSE POC LAB TO COLLECT [POC] QIDACANDBED 05/24/19 21:00 GLUCOSE POC LAB TO COLLECT [POC] QIDACANDBED 05/25/19 00:01 Sodium Chloride 0.9% @ 75 MLS/HR(1000ml) Sodium Chloride 0.9% [Normal Saline] 1 ,000 ml IV ASDIRECTED 05/25/19 07:30 GLUCOSE POC LAB TO COLLECT [POC] QIDACANDBED 05/25/19 11:30 GLUCOSE POC LAB TO COLLECT [POC] QIDACANDBED 05/25/19 16:30 GLUCOSE POC LAB TO COLLECT [POC] QIDACANDBED 05/25/19 21:00 GLUCOSE POC LAB TO COLLECT [POC] QIDACANDBED 05/26/19 07:30 GLUCOSE POC LAB TO COLLECT [POC] QIDACANDBED 05/26/19 11:30 GLUCOSE POC LAB TO COLLECT [POC] QIDACANDBED - Plan Plan:: ASSESSMENT AND PLAN CELLULITIS LEFT LOWER EXTREMITY-afebrile since admission with normalization of white blood cell count. Area of cellulitis has improved when compared to what was noted on admission. Persistent area of erythema with some underlying fluctuance noted over the anterior aspect of the left lower leg. -Blood Cultures remain negative -IV Zosyn pending -Surgical follow-up per Dr. Miles, possible I and D in a.m. TYPE 2 DIABETES MELLITUS -Continue metformin 1 g by mouth twice a day -Low-dose sliding scale insulin -4 times a day glucometers MAINTENANCE ISSUES -DVT prophylaxis; Lovenox 40 mg subcutaneous daily -GI prophylaxis; not indicated -Luna catheter; not indicated -Nutrition; consistent carb diet -Nicotine dependence; not required CODE STATUS-FULL CODE ADMISSION STATUS-patient will be admitted to inpatient status, expect at least a 2 night hospital stay for evaluation and management of problems as outlined above. At the time of this admission I do not reasonably expected evaluation and management of this problem will require more than a 96 hour hospital stay. DISPOSITION-anticipate discharge to home after the hospital stay. PRIMARY CARE PROVIDER-Dr. Dumont
[2019-05-24] MEDS: Acetaminophen/Caffeine 500-65 MG Tab PO PRN (12:28)
[2019-05-24] MEDS: Enoxaparin 40 MG/0.4 ML Syringe SUBCUT SCH (15:23)
[2019-05-25] MEDS ORDERED: Sodium Chloride 0.9% 1,000 ML IV SCH (00:01)
[2019-05-25] MEDS: Piperacillin/Tazobactam/Dext 3.375 GM in Premix Bag 1 BAG IV SCH ×4 (03:09→21:11)
[2019-05-25] MEDS ORDERED: Bupivacaine 0.5% 50 ML MDV ONE (07:18)
[2019-05-25] MEDS ORDERED: Lidocaine 1% with EPINEPHrine 1:100,000 50 ML MDV ONE (07:18)
--- NOTE | 2019-05-25 07:56 | PN ---
DATE OF SERVICE: 05/25/2019 SUBJECTIVE: Cherrie has been n.p.o. since midnight. Her left leg shows a fluctuant area of soft tissue and abscess in the mid tibia area. Vital signs have been stable. Pain increases to a 7 to 8 when up ambulating. Blood sugars in the past 24 hours have been 246, 235, 206 and 235. Afebrile. REVIEW OF SYSTEMS: Remainder of review of systems negative for any pertinent positives and negatives. OBJECTIVE: GENERAL: Cherrie Tom is a pleasant 59-year-old female, alert and orientated. VITAL SIGNS: TPR 96, 88, 15, blood pressure 135/70. HEENT: Negative. NECK: Supple. HEART: Regular rate and rhythm. LUNGS: Clear. ABDOMEN: Negative. EXTREMITIES: Left lower leg, the cellulitis is decreasing in redness, but she has an area about the size of a quarter that is quite fluctuant and needs to be drained. ASSESSMENT: Cellulitis, left leg. PLAN: Schedule and have consent signed for incision and drainage of left lower leg cellulitis with IV and local sedation. Case to follow, Tuesday05/25/2019. Surgeon, Mumtaz Miles MD. The patient to remain n.p.o. Orders to be written postoperatively. Margoth Sheth PA-C /[phone]
[2019-05-25] MEDS: Insulin Lispro 100 Unit/ML 3 ML KwikPen SUBCUT SCH ×4 (08:29→21:12)
[2019-05-25] MEDS ORDERED: fentaNYL 100 MCG/2 ML SDV ONE (08:42)
[2019-05-25] MEDS ORDERED: Propofol 200 MG/20 ML SDV ONE (08:43)
[2019-05-25] MEDS ORDERED: Midazolam 1 MG/ML 2 ML SDV ONE (08:43)
[2019-05-25] MEDS ORDERED: Sodium Chloride 0.9% 500 ML ONE (09:26)
[2019-05-25] MEDS: metFORMIN 500 MG Tab PO SCH ×2 (10:10→17:52)
[2019-05-25] MEDS: Simvastatin 20 MG Tab PO SCH (10:13)
[2019-05-25] MEDS: Lactobacillus Rhamnosus GG (Probiotic) Cap PO SCH ×2 (10:13→21:11)
[2019-05-25] MEDS: Acetaminophen/Caffeine 500-65 MG Tab PO PRN (10:14)
[2019-05-25] MEDS: Losartan 50 MG Tab PO SCH (10:15)
[2019-05-25] MEDS: oxyCODONE 5 MG Tab PO PRN ×2 (11:26→17:52)
--- NOTE | 2019-05-25 12:30 | PCM.PN ---
- General Info Date of Service: 05/25/19 Subjective Update: Ms. Tom has been stable since yesterday with no significant temperature elevation and good vital signs. She was taken to the operating room today by Dr. Miles for IND Of an area of fluctuance on the anterior aspect of the left lower leg. Currently she was found to have some necrotic infected material in this region. Functional Status: Reports: Tolerating Diet, Ambulating, Urinating - Review of Systems General: Reports: Weakness. Denies: Fever, Chills Pulmonary: Reports: No Symptoms Cardiovascular: Reports: No Symptoms Gastrointestinal: Reports: No Symptoms - Patient Data Vitals - Most Recent: Last Vital Signs Temp 97.3 F 05/25/19 10:05 Pulse 79 05/25/19 11:15 Resp 18 05/25/19 11:15 BP 149/69 H 05/25/19 11:15 Pulse Ox 96 05/25/19 11:15 Weight - Most Recent: 197 lb 6.4 oz I&O - Last 24 Hours: Intake & Output 05/24/19 05/25/19 05/25/19 22:59 06:59 14:59 Intake Total 820 50 50 Output Total 200 Balance 620 50 50 Brian Results Last 24 Hours: Microbiology 05/25/19 09:26 Gram Stain - Final Leg, Left 05/21/19 11:50 Aerobic Blood Culture - Preliminary Blood - Arm, Left NO GROWTH AFTER 3 DAYS Anaerobic Blood Culture - Preliminary NO GROWTH AFTER 3 DAYS 05/21/19 12:00 Aerobic Blood Culture - Preliminary Blood - Arm, Left NO GROWTH AFTER 3 DAYS Anaerobic Blood Culture - Preliminary NO GROWTH AFTER 3 DAYS Med Orders - Current: Current Medications Acetaminophen (Tylenol) 650 mg PO Q4H PRN PRN Reason: Pain (Mild 1-3)/fever Last Admin: 05/24/19 15:23 Dose: 650 mg Acetaminophen/Caffeine (Excedrin Tension Headache) 2 tab PO Q6H PRN PRN Reason: Headache Last Admin: 05/25/19 10:14 Dose: 2 tab Dextrose (Glutose 15) 15 gm PO ONETIME PRN PRN Reason: Hypoglycemia Dextrose/Water (Dextrose 50% In Water) 50 ml IV ONETIME PRN PRN Reason: Hypoglycemia Enoxaparin Sodium (Lovenox) 40 mg SUBCUT Q24H [facility] Last Admin: 05/24/19 15:23 Dose: 40 mg Piperacillin/Tazobactam/ (Dextrose 3.375 gm/ Premix) 50 mls @ 100 mls/hr IV Q6H [facility] Last Admin: 05/25/19 10:13 Dose: 100 mls/hr Insulin Human Lispro (Humalog) 0 unit SUBCUT QIDACANDBED [facility]; Protocol Last Admin: 05/25/19 08:29 Dose: 2 units Lactobacillus Rhamnosus (Culturelle) 1 cap PO BID [facility] Last Admin: 05/25/19 10:13 Dose: 1 cap Losartan Potassium (Cozaar) 50 mg PO DAILY [facility] Last Admin: 05/25/19 10:15 Dose: 50 mg Metformin HCl (Glucophage) 1,000 mg PO BIDM [facility] Last Admin: 05/25/19 10:10 Dose: Not Given Ondansetron HCl (Zofran) 4 mg IV Q4H PRN PRN Reason: Nausea/Vomiting Last Admin: 05/23/19 14:28 Dose: 4 mg Oxycodone HCl (Oxycodone) 5 mg PO Q4H PRN PRN Reason: Pain (moderate 4-6) Last Admin: 05/25/19 11:26 Dose: 5 mg Polyethylene Glycol (Miralax) 17 gm PO DAILY PRN PRN Reason: Constipation Simvastatin (Zocor) 40 mg PO DAILY [facility] Last Admin: 05/25/19 10:13 Dose: 40 mg Sodium Chloride (Saline Flush) 10 ml FLUSH ASDIRECTED PRN PRN Reason: Keep Vein Open Discontinued Medications Bupivacaine HCl (Marcaine 0.5%) Confirm Administered Dose 50 ml .ROUTE .STK-MED ONE Stop: 05/25/19 07:19 Last Admin: 05/25/19 10:33 Dose: 5 ml Fentanyl (Sublimaze) Confirm Administered Dose 100 mcg .ROUTE .STK-MED ONE Stop: 05/25/19 08:43 Piperacillin Sod/Tazobactam (Sod 3.375 gm/ Sodium Chloride) 50 mls @ 100 mls/ hr IV Q6H [facility] Last Admin: 05/21/19 10:48 Dose: 100 mls/hr Sodium Chloride (Normal Saline) 1,000 mls @ 999 mls/hr IV ASDIRECTED [facility] Lactated Ringer's (Ringers, Lactated) 1,000 mls @ 125 mls/hr IV ASDIRECTED [facility] Last Admin: 05/21/19 23:41 Dose: 125 mls/hr Vancomycin HCl 1.25 gm/ Sodium (Chloride) 250 mls @ 250 mls/hr IV Q18H [facility] Last Admin: 05/22/19 07:39 Dose: 250 mls/hr Vancomycin HCl 1.75 gm/ Sodium (Chloride) 250 mls @ 166.667 mls/hr IV ONETIME ONE Stop: 05/21/19 14:29 Last Admin: 05/21/19 13:41 Dose: 166.667 mls/hr Vancomycin HCl 1.25 gm/ Sodium (Chloride) 250 mls @ 167 mls/hr IV Q12H [facility] Last Admin: 05/23/19 05:21 Dose: 167 mls/hr Sodium Chloride (Normal Saline) 1,000 mls @ 75 mls/hr IV ASDIRECTED [facility] Last Admin: 05/25/19 00:25 Dose: 75 mls/hr Sodium Chloride (Normal Saline) Confirm Administered Dose 500 mls @ as directed .ROUTE .STK-MED ONE Stop: 05/25/19 09:27 Insulin Human Regular (Humulin R) 5 unit SUBCUT ONETIME ONE Stop: 05/21/19 10:29 Last Admin: 05/21/19 10:45 Dose: 5 units Lidocaine/Epinephrine (Xylocaine 1% With Epinephrine 1:100,000) Confirm Administered Dose 50 ml .ROUTE .STK-MED ONE Stop: 05/25/19 07:19 Last Admin: 05/25/19 10:34 Dose: 5 ml Midazolam HCl (Versed 1 Mg/Ml) Confirm Administered Dose 2 mg .ROUTE .STK-MED ONE Stop: 05/25/19 08:44 Oxycodone/Acetaminophen (Percocet 325-5 Mg) 1 tab PO ONETIME ONE Stop: 05/21/19 10:29 Last Admin: 05/21/19 10:47 Dose: 1 tab Propofol (Diprivan 20 Ml) Confirm Administered Dose 200 mg .ROUTE .STK-MED ONE Stop: 05/25/19 08:44 Vancomycin HCl (Vancomycin) 1 gm IV .PHARMACY TO DOSE DEE - Exam Quality Assessment: DVT Prophylaxis General: Alert, Oriented, Cooperative, Mild Distress Lungs: Clear to Auscultation, Normal Respiratory Effort Cardiovascular: Regular Rate, Regular Rhythm, No Murmurs GI/Abdominal Exam: Soft, Non-Tender, No Organomegaly, No Distention Extremities: Other (surgical dressing in place left lower leg) - Problem List Review Problem List Initiated/Reviewed/Updated: Yes - My Orders Last 24 Hours: My Active Orders 05/25/19 12:14 Convert IV to Saline Lock [OM.PC] Routine 05/25/19 16:30 GLUCOSE POC LAB TO COLLECT [POC] QIDACANDBED 05/25/19 21:00 GLUCOSE POC LAB TO COLLECT [POC] QIDACANDBED 05/25/19 Lunch Consistent Carbohydrate Diet [DIET] 05/26/19 07:30 GLUCOSE POC LAB TO COLLECT [POC] QIDACANDBED 05/26/19 11:30 GLUCOSE POC LAB TO COLLECT [POC] QIDACANDBED - Plan Plan:: ASSESSMENT AND PLAN CELLULITIS LEFT LOWER EXTREMITY-status post I&D earlier today by Dr. Miles, gram -positive cocci noted on tissue Gram stain -Blood Cultures remain negative -resume vancomycin pending tissue culture result -IV Zosyn pending -Surgical follow-up per Dr. Miles TYPE 2 DIABETES MELLITUS -Continue metformin 1 g by mouth twice a day -Low-dose sliding scale insulin -4 times a day glucometers MAINTENANCE ISSUES -DVT prophylaxis; Lovenox 40 mg subcutaneous daily -GI prophylaxis; not indicated -Luna catheter; not indicated -Nutrition; consistent carb diet -Nicotine dependence; not required CODE STATUS-FULL CODE ADMISSION STATUS-patient will be admitted to inpatient status, expect at least a 2 night hospital stay for evaluation and management of problems as outlined above. At the time of this admission I do not reasonably expected evaluation and management of this problem will require more than a 96 hour hospital stay. DISPOSITION-anticipate discharge to home after the hospital stay. PRIMARY CARE PROVIDER-Dr. Dumont
[2019-05-25] MEDS ORDERED: Vancomycin 1 GM SDV IV SCH (13:00)
[2019-05-25] MEDS: Ondansetron 4 MG/2 ML SDV IV PRN (13:10)
[2019-05-25] MEDS: Enoxaparin 40 MG/0.4 ML Syringe SUBCUT SCH (15:58)
[2019-05-26] MEDS: Acetaminophen/Caffeine 500-65 MG Tab PO PRN ×2 (03:00→20:26)
[2019-05-26] MEDS: oxyCODONE 5 MG Tab PO PRN ×4 (03:00→20:24)
[2019-05-26] MEDS: Piperacillin/Tazobactam/Dext 3.375 GM in Premix Bag 1 BAG IV SCH ×4 (04:55→22:13)
[2019-05-26] MEDS: metFORMIN 500 MG Tab PO SCH ×2 (07:30→17:36)
[2019-05-26] MEDS: Insulin Lispro 100 Unit/ML 3 ML KwikPen SUBCUT SCH ×4 (07:31→21:42)
--- NOTE | 2019-05-26 08:42 | PCM.PN ---
- General Info Date of Service: 05/26/19 Subjective Update: Ms. Tom has been stable since yesterday. Vital signs are good and she has remained afebrile. Dressing removed earlier today by Dr. Miles, he reports persistent erythema. Dr. Miles did change antibiotic therapy from vancomycin to Zyvox. Functional Status: Reports: Tolerating Diet - Review of Systems General: Denies: Fever, Chills Pulmonary: Reports: No Symptoms Cardiovascular: Reports: No Symptoms Gastrointestinal: Reports: No Symptoms - Patient Data Vitals - Most Recent: Last Vital Signs Temp 97.3 F 05/26/19 07:00 Pulse 72 05/26/19 07:00 Resp 18 05/26/19 07:00 BP 132/68 05/26/19 07:00 Pulse Ox 95 05/26/19 07:00 Weight - Most Recent: 197 lb 6.4 oz I&O - Last 24 Hours: Intake & Output 05/25/19 05/26/19 05/26/19 22:59 06:59 14:59 Intake Total 500 810 Output Total 700 Balance 500 110 Brian Results Last 24 Hours: Microbiology 05/25/19 09:26 Gram Stain - Final Leg, Left Wound Culture - Preliminary 05/21/19 11:50 Aerobic Blood Culture - Preliminary Blood - Arm, Left NO GROWTH AFTER 4 DAYS Anaerobic Blood Culture - Preliminary NO GROWTH AFTER 4 DAYS 05/21/19 12:00 Aerobic Blood Culture - Preliminary Blood - Arm, Left NO GROWTH AFTER 4 DAYS Anaerobic Blood Culture - Preliminary NO GROWTH AFTER 4 DAYS Med Orders - Current: Current Medications Acetaminophen (Tylenol) 650 mg PO Q4H PRN PRN Reason: Pain (Mild 1-3)/fever Last Admin: 05/24/19 15:23 Dose: 650 mg Acetaminophen/Caffeine (Excedrin Tension Headache) 2 tab PO Q6H PRN PRN Reason: Headache Last Admin: 05/26/19 03:00 Dose: 2 tab Dextrose (Glutose 15) 15 gm PO ONETIME PRN PRN Reason: Hypoglycemia Dextrose/Water (Dextrose 50% In Water) 50 ml IV ONETIME PRN PRN Reason: Hypoglycemia Enoxaparin Sodium (Lovenox) 40 mg SUBCUT Q24H DEE Last Admin: 05/25/19 15:58 Dose: 40 mg Piperacillin/Tazobactam/ (Dextrose 3.375 gm/ Premix) 50 mls @ 100 mls/hr IV Q6H [facility] Last Admin: 05/26/19 04:55 Dose: 100 mls/hr Linezolid 600 mg/ Premix 300 mls @ 300 mls/hr IV Q12H [facility] Insulin Human Lispro (Humalog) 0 unit SUBCUT QIDACANDBED [facility]; Protocol Last Admin: 05/26/19 07:31 Dose: 1 units Lactobacillus Rhamnosus (Culturelle) 1 cap PO BID [facility] Last Admin: 05/25/19 21:11 Dose: 1 cap Losartan Potassium (Cozaar) 50 mg PO DAILY [facility] Last Admin: 05/25/19 10:15 Dose: 50 mg Metformin HCl (Glucophage) 1,000 mg PO BIDM [facility] Last Admin: 05/26/19 07:30 Dose: 1,000 mg Ondansetron HCl (Zofran) 4 mg IV Q4H PRN PRN Reason: Nausea/Vomiting Last Admin: 05/25/19 13:10 Dose: 4 mg Oxycodone HCl (Oxycodone) 5 mg PO Q4H PRN PRN Reason: Pain (moderate 4-6) Last Admin: 05/26/19 07:31 Dose: 5 mg Polyethylene Glycol (Miralax) 17 gm PO DAILY PRN PRN Reason: Constipation Simvastatin (Zocor) 40 mg PO DAILY [facility] Last Admin: 05/25/19 10:13 Dose: 40 mg Sodium Chloride (Saline Flush) 10 ml FLUSH ASDIRECTED PRN PRN Reason: Keep Vein Open Discontinued Medications Bupivacaine HCl (Marcaine 0.5%) Confirm Administered Dose 50 ml .ROUTE .STK-MED ONE Stop: 05/25/19 07:19 Last Admin: 05/25/19 10:33 Dose: 5 ml Fentanyl (Sublimaze) Confirm Administered Dose 100 mcg .ROUTE .STK-MED ONE Stop: 05/25/19 08:43 Piperacillin Sod/Tazobactam (Sod 3.375 gm/ Sodium Chloride) 50 mls @ 100 mls/ hr IV Q6H [facility] Last Admin: 05/21/19 10:48 Dose: 100 mls/hr Sodium Chloride (Normal Saline) 1,000 mls @ 999 mls/hr IV ASDIRECTED [facility] Lactated Ringer's (Ringers, Lactated) 1,000 mls @ 125 mls/hr IV ASDIRECTED [facility] Last Admin: 05/21/19 23:41 Dose: 125 mls/hr Vancomycin HCl 1.25 gm/ Sodium (Chloride) 250 mls @ 250 mls/hr IV Q18H [facility] Last Admin: 05/22/19 07:39 Dose: 250 mls/hr Vancomycin HCl 1.75 gm/ Sodium (Chloride) 250 mls @ 166.667 mls/hr IV ONETIME ONE Stop: 05/21/19 14:29 Last Admin: 05/21/19 13:41 Dose: 166.667 mls/hr Vancomycin HCl 1.25 gm/ Sodium (Chloride) 250 mls @ 167 mls/hr IV Q12H [facility] Last Admin: 05/23/19 05:21 Dose: 167 mls/hr Sodium Chloride (Normal Saline) 1,000 mls @ 75 mls/hr IV ASDIRECTED [facility] Last Admin: 05/25/19 00:25 Dose: 75 mls/hr Sodium Chloride (Normal Saline) Confirm Administered Dose 500 mls @ as directed .ROUTE .STK-MED ONE Stop: 05/25/19 09:27 Vancomycin HCl 1.75 gm/ Sodium (Chloride) 250 mls @ 167 mls/hr IV ONETIME ONE Stop: 05/25/19 15:29 Last Admin: 05/25/19 14:11 Dose: 167 mls/hr Vancomycin HCl 1.25 gm/ Sodium (Chloride) 250 mls @ 167 mls/hr IV Q12H [facility] Last Admin: 05/26/19 02:51 Dose: 167 mls/hr Insulin Human Regular (Humulin R) 5 unit SUBCUT ONETIME ONE Stop: 05/21/19 10:29 Last Admin: 05/21/19 10:45 Dose: 5 units Lidocaine/Epinephrine (Xylocaine 1% With Epinephrine 1:100,000) Confirm Administered Dose 50 ml .ROUTE .STK-MED ONE Stop: 05/25/19 07:19 Last Admin: 05/25/19 10:34 Dose: 5 ml Midazolam HCl (Versed 1 Mg/Ml) Confirm Administered Dose 2 mg .ROUTE .STK-MED ONE Stop: 05/25/19 08:44 Oxycodone/Acetaminophen (Percocet 325-5 Mg) 1 tab PO ONETIME ONE Stop: 05/21/19 10:29 Last Admin: 05/21/19 10:47 Dose: 1 tab Propofol (Diprivan 20 Ml) Confirm Administered Dose 200 mg .ROUTE .STK-MED ONE Stop: 05/25/19 08:44 Vancomycin HCl (Vancomycin) 1 gm IV .PHARMACY TO DOSE DEE Vancomycin HCl (Vancomycin) 1 gm IV .PHARMACY TO DOSE DEE Stop: 05/25/19 13:01 - Exam Quality Assessment: DVT Prophylaxis General: Alert, Oriented, Cooperative, Mild Distress Lungs: Clear to Auscultation, Normal Respiratory Effort Cardiovascular: Regular Rate, Regular Rhythm, No Murmurs GI/Abdominal Exam: Soft, Non-Tender, No Organomegaly, No Distention Extremities: Other (Surgical dressing in place left lower leg) - Problem List Review Problem List Initiated/Reviewed/Updated: Yes - My Orders Last 24 Hours: My Active Orders 05/25/19 12:14 Convert IV to Saline Lock [OM.PC] Routine 05/25/19 Lunch Consistent Carbohydrate Diet [DIET] 05/26/19 11:30 GLUCOSE POC LAB TO COLLECT [POC] QIDACANDBED - Plan Plan:: ASSESSMENT AND PLAN CELLULITIS LEFT LOWER EXTREMITY-status post I&D earlier today by Dr. Miles, gram -positive cocci noted on tissue Gram stain, final ID and sensitivities pending -Blood Cultures remain negative -Zyvox as per Dr. Miels -IV Zosyn pending -Surgical follow-up per Dr. Miles TYPE 2 DIABETES MELLITUS -Continue metformin 1 g by mouth twice a day -Low-dose sliding scale insulin -4 times a day glucometers MAINTENANCE ISSUES -DVT prophylaxis; Lovenox 40 mg subcutaneous daily -GI prophylaxis; not indicated -Luna catheter; not indicated -Nutrition; consistent carb diet -Nicotine dependence; not required CODE STATUS-FULL CODE ADMISSION STATUS-patient will be admitted to inpatient status, expect at least a 2 night hospital stay for evaluation and management of problems as outlined above. At the time of this admission I do not reasonably expected evaluation and management of this problem will require more than a 96 hour hospital stay. DISPOSITION-anticipate discharge to home after the hospital stay. PRIMARY CARE PROVIDER-Dr. Dumont
[2019-05-26] MEDS: Linezolid 600 MG in Premix Bag 1 BAG IV SCH ×2 (09:45→20:12)
[2019-05-26] MEDS: Losartan 50 MG Tab PO SCH (09:45)
[2019-05-26] MEDS: Lactobacillus Rhamnosus GG (Probiotic) Cap PO SCH ×2 (09:45→20:12)
[2019-05-26] MEDS: Simvastatin 20 MG Tab PO SCH (09:47)
[2019-05-26] MEDS: Acetaminophen 325 MG Tab PO PRN (09:53)
[2019-05-26] MEDS: Enoxaparin 40 MG/0.4 ML Syringe SUBCUT SCH (17:36)
[2019-05-26] MEDS: HYDROmorphone 0.5 MG/0.5 ML Syringe IVPUSH PRN (22:48)
[2019-05-27] MEDS: Piperacillin/Tazobactam/Dext 3.375 GM in Premix Bag 1 BAG IV SCH ×4 (04:10→23:27)
[2019-05-27] MEDS: Acetaminophen/Caffeine 500-65 MG Tab PO PRN ×3 (04:14→23:55)
[2019-05-27] MEDS: Insulin Lispro 100 Unit/ML 3 ML KwikPen SUBCUT SCH ×4 (07:57→22:07)
[2019-05-27] MEDS: HYDROmorphone 0.5 MG/0.5 ML Syringe IVPUSH PRN (07:57)
[2019-05-27] MEDS: metFORMIN 500 MG Tab PO SCH ×2 (07:57→16:50)
--- NOTE | 2019-05-27 08:49 | PCM.PN ---
- General Info Date of Service: 05/27/19 Subjective Update: Ms. Tom has been stable since yesterday, no significant temperature elevation. Dr. Miles reports that wound appears to be less erythematous. Functional Status: Reports: Pain Controlled, Tolerating Diet, Ambulating, Urinating - Review of Systems General: Denies: Fever, Chills Pulmonary: Reports: No Symptoms Cardiovascular: Reports: No Symptoms Gastrointestinal: Reports: No Symptoms - Patient Data Vitals - Most Recent: Last Vital Signs Temp 96.9 F 05/27/19 07:55 Pulse 78 05/27/19 07:55 Resp 16 05/27/19 07:55 BP 156/87 H 05/27/19 07:55 Pulse Ox 97 05/27/19 07:55 Weight - Most Recent: 197 lb 6.4 oz I&O - Last 24 Hours: Intake & Output 05/26/19 05/27/19 05/27/19 22:59 06:59 14:59 Intake Total 950 1000 Balance 950 1000 Brian Results Last 24 Hours: Microbiology 05/25/19 09:26 Gram Stain - Final Leg, Left Wound Culture - Preliminary 05/25/19 09:26 Anaerobic Culture - Preliminary Leg, Left NO GROWTH AFTER 2 DAYS 05/21/19 12:00 Aerobic Blood Culture - Final Blood - Arm, Left NO GROWTH AFTER 5 DAYS Anaerobic Blood Culture - Final NO GROWTH AFTER 5 DAYS 05/21/19 11:50 Aerobic Blood Culture - Final Blood - Arm, Left NO GROWTH AFTER 5 DAYS Anaerobic Blood Culture - Final NO GROWTH AFTER 5 DAYS Med Orders - Current: Current Medications Acetaminophen (Tylenol) 650 mg PO Q4H PRN PRN Reason: Pain (Mild 1-3)/fever Last Admin: 05/26/19 09:53 Dose: 650 mg Acetaminophen/Caffeine (Excedrin Tension Headache) 2 tab PO Q6H PRN PRN Reason: Headache Last Admin: 05/27/19 04:14 Dose: 2 tab Dextrose (Glutose 15) 15 gm PO ONETIME PRN PRN Reason: Hypoglycemia Dextrose/Water (Dextrose 50% In Water) 50 ml IV ONETIME PRN PRN Reason: Hypoglycemia Enoxaparin Sodium (Lovenox) 40 mg SUBCUT Q24H DEE Last Admin: 05/26/19 17:36 Dose: 40 mg Hydromorphone HCl (Dilaudid) 0.5 mg IVPUSH Q2H PRN PRN Reason: Pain Last Admin: 05/27/19 07:57 Dose: 0.5 mg Piperacillin/Tazobactam/ (Dextrose 3.375 gm/ Premix) 50 mls @ 100 mls/hr IV Q6H [facility] Last Admin: 05/27/19 04:10 Dose: 100 mls/hr Linezolid 600 mg/ Premix 300 mls @ 300 mls/hr IV Q12H [facility] Last Admin: 05/26/19 20:12 Dose: 300 mls/hr Insulin Human Lispro (Humalog) 0 unit SUBCUT QIDACANDBED [facility]; Protocol Last Admin: 05/27/19 07:57 Dose: 2 units Lactobacillus Rhamnosus (Culturelle) 1 cap PO BID [facility] Last Admin: 05/26/19 20:12 Dose: 1 cap Losartan Potassium (Cozaar) 50 mg PO DAILY [facility] Last Admin: 05/26/19 09:45 Dose: 50 mg Metformin HCl (Glucophage) [facility] [place] Admin: 05/27/19 07:57 Dose: 1,000 mg Ondansetron HCl (Zofran) 4 mg IV Q4H PRN PRN Reason: Nausea/Vomiting Last Admin: 05/25/19 13:10 Dose: 4 mg Oxycodone HCl (Oxycodone) 5 mg PO Q4H PRN PRN Reason: Pain (moderate 4-6) Last Admin: 05/26/19 20:24 Dose: 5 mg Polyethylene Glycol (Miralax) 17 gm PO DAILY PRN PRN Reason: Constipation Simvastatin (Zocor) 40 mg PO DAILY [facility] Last Admin: 05/26/19 09:47 Dose: 40 mg Sodium Chloride (Saline Flush) 10 ml FLUSH ASDIRECTED PRN PRN Reason: Keep Vein Open Discontinued Medications Bupivacaine HCl (Marcaine 0.5%) Confirm Administered Dose 50 ml .ROUTE .STK-MED ONE Stop: 05/25/19 07:19 Last Admin: 05/25/19 10:33 Dose: 5 ml Fentanyl (Sublimaze) Confirm Administered Dose 100 mcg .ROUTE .STK-MED ONE Stop: 05/25/19 08:43 Piperacillin Sod/Tazobactam (Sod 3.375 gm/ Sodium Chloride) 50 mls @ 100 mls/ hr IV Q6H [facility] Last Admin: 05/21/19 10:48 Dose: 100 mls/hr Sodium Chloride (Normal Saline) 1,000 mls @ 999 mls/hr IV ASDIRECTED [facility] Lactated Ringer's (Ringers, Lactated) 1,000 mls @ 125 mls/hr IV ASDIRECTED [facility] Last Admin: 05/21/19 23:41 Dose: 125 mls/hr Vancomycin HCl 1.25 gm/ Sodium (Chloride) 250 mls @ 250 mls/hr IV Q18H [facility] Last Admin: 05/22/19 07:39 Dose: 250 mls/hr Vancomycin HCl 1.75 gm/ Sodium (Chloride) 250 mls @ 166.667 mls/hr IV ONETIME ONE Stop: 05/21/19 14:29 Last Admin: 05/21/19 13:41 Dose: 166.667 mls/hr Vancomycin HCl 1.25 gm/ Sodium (Chloride) 250 mls @ 167 mls/hr IV Q12H [facility] Last Admin: 05/23/19 05:21 Dose: 167 mls/hr Sodium Chloride (Normal Saline) 1,000 mls @ 75 mls/hr IV ASDIRECTED [facility] Last Admin: 05/25/19 00:25 Dose: 75 mls/hr Sodium Chloride (Normal Saline) Confirm Administered Dose 500 mls @ as directed .ROUTE .STK-MED ONE Stop: 05/25/19 09:27 Vancomycin HCl 1.75 gm/ Sodium (Chloride) 250 mls @ 167 mls/hr IV ONETIME ONE Stop: 05/25/19 15:29 Last Admin: 05/25/19 14:11 Dose: 167 mls/hr Vancomycin HCl 1.25 gm/ Sodium (Chloride) 250 mls @ 167 mls/hr IV Q12H [facility] Last Admin: 05/26/19 02:51 Dose: 167 mls/hr Insulin Human Regular (Humulin R) 5 unit SUBCUT ONETIME ONE Stop: 05/21/19 10:29 Last Admin: 05/21/19 10:45 Dose: 5 units Lidocaine/Epinephrine (Xylocaine 1% With Epinephrine 1:100,000) Confirm Administered Dose 50 ml .ROUTE .STK-MED ONE Stop: 05/25/19 07:19 Last Admin: 05/25/19 10:34 Dose: 5 ml Midazolam HCl (Versed 1 Mg/Ml) Confirm Administered Dose 2 mg .ROUTE .STK-MED ONE Stop: 05/25/19 08:44 Oxycodone/Acetaminophen (Percocet 325-5 Mg) 1 tab PO ONETIME ONE Stop: 05/21/19 10:29 Last Admin: 05/21/19 10:47 Dose: 1 tab Propofol (Diprivan 20 Ml) Confirm Administered Dose 200 mg .ROUTE .STK-MED ONE Stop: 05/25/19 08:44 Vancomycin HCl (Vancomycin) 1 gm IV .PHARMACY TO DOSE DEE Vancomycin HCl (Vancomycin) 1 gm IV .PHARMACY TO DOSE DEE Stop: 05/25/19 13:01 - Exam General: Alert, Oriented, Cooperative, No Acute Distress Lungs: Clear to Auscultation, Normal Respiratory Effort Cardiovascular: Regular Rate, Regular Rhythm, No Murmurs GI/Abdominal Exam: Soft, Non-Tender, No Organomegaly, No Distention Extremities: Other (Surgical dressing in place left lower extremity) - Problem List Review Problem List Initiated/Reviewed/Updated: Yes - My Orders Last 24 Hours: My Active Orders 05/26/19 15:58 Blood Glucose Check, Bedside [RC] QIDACANDBED 05/26/19 22:27 HYDROmorphone [Dilaudid] 0.5 mg IVPUSH Q2H PRN 05/27/19 11:30 GLUCOSE POC LAB TO COLLECT [POC] QIDACANDBED 05/27/19 16:30 GLUCOSE POC LAB TO COLLECT [POC] QIDACANDBED 05/27/19 21:00 GLUCOSE POC LAB TO COLLECT [POC] QIDACANDBED 05/28/19 07:30 GLUCOSE POC LAB TO COLLECT [POC] QIDACANDBED 05/28/19 11:30 GLUCOSE POC LAB TO COLLECT [POC] QIDACANDBED 05/28/19 16:30 GLUCOSE POC LAB TO COLLECT [POC] QIDACANDBED 05/28/19 21:00 GLUCOSE POC LAB TO COLLECT [POC] QIDACANDBED - Plan Plan:: ASSESSMENT AND PLAN CELLULITIS LEFT LOWER EXTREMITY-status post I&D by Dr. Miles, gram-positive cocci noted on tissue Gram stain, final ID and sensitivities pending -Blood Cultures remain negative -Zyvox as per Dr. Miles -IV Zosyn pending -Surgical follow-up per Dr. Miles TYPE 2 DIABETES MELLITUS -Continue metformin 1 g by mouth twice a day -Low-dose sliding scale insulin -4 times a day glucometers MAINTENANCE ISSUES -DVT prophylaxis; Lovenox 40 mg subcutaneous daily -GI prophylaxis; not indicated -Luna catheter; not indicated -Nutrition; consistent carb diet -Nicotine dependence; not required CODE STATUS-FULL CODE ADMISSION STATUS-patient will be admitted to inpatient status, expect at least a 2 night hospital stay for evaluation and management of problems as outlined above. At the time of this admission I do not reasonably expected evaluation and management of this problem will require more than a 96 hour hospital stay. DISPOSITION-anticipate discharge to home after the hospital stay. PRIMARY CARE PROVIDER-Dr. Dumont
[2019-05-27] MEDS: Acetaminophen 325 MG Tab PO PRN (09:08)
[2019-05-27] MEDS: Ondansetron 4 MG/2 ML SDV IV PRN ×2 (10:41→22:38)
[2019-05-27] MEDS: Linezolid 600 MG in Premix Bag 1 BAG IV SCH ×2 (10:44→22:00)
[2019-05-27] MEDS: Losartan 50 MG Tab PO SCH (12:11)
[2019-05-27] MEDS: Lactobacillus Rhamnosus GG (Probiotic) Cap PO SCH ×2 (12:12→22:01)
[2019-05-27] MEDS: Simvastatin 20 MG Tab PO SCH (12:12)
[2019-05-27] MEDS: Enoxaparin 40 MG/0.4 ML Syringe SUBCUT SCH (16:50)
[2019-05-27] MEDS: oxyCODONE 5 MG Tab PO PRN (20:31)
[2019-05-28] MEDS: Ondansetron 4 MG/2 ML SDV IV PRN (02:42)
[2019-05-28] MEDS: Piperacillin/Tazobactam/Dext 3.375 GM in Premix Bag 1 BAG IV SCH (04:33)
--- NOTE | 2019-05-28 08:05 | PN ---
DATE OF SERVICE: 05/28/2019 SUBJECTIVE: Cherrie is 3 days postop following incision and drainage of left anterior lower leg cellulitis. She reports pain is controlled. She has no other questions or concerns. Gram stain Staphylococcus aureus. REVIEW OF SYSTEMS: Remainder of review of systems negative for any pertinent positives and negatives. OBJECTIVE: GENERAL: Cherrie Tom is a 59-year-old female. Alert and orientated. VITAL SIGNS: TPR 96.6, 78, 18 and blood pressure 162/75. HEENT: Negative. NECK: Supple. HEART: Regular rate and rhythm. LUNGS: Clear. EXTREMITIES: Left anterior tibia incision opened. This was packed per Mumtaz Miles MD and dressing applied and incision is healing well. ASSESSMENT: Incision and drainage, left lower leg cellulitis. PLAN: 1. Discontinue Zyvox. 2. Cipro 400 mg IV b.i.d. 3. Doxycycline 100 mg IV b.i.d. 4. Change dressing twice daily, using 4x4 gently placing it in open incision using a cotton tip applicator. Put six 4x4s over area, wrapped from toes to below knee with Kerlix, use 4-inch PEÑA wrap and put the PEÑA wrap on top of the Kerlix from below toes to below knee and secure in place. 5. Discharge planning notified in regard to home health care for dressing changes and also to teach, son, the home dressing changes if possible if he is able to do this. Recommend at this time that if home care is not able to come in once a day or son is not able to help to contact clinic and dressing changes, an appointment time can be made at the clinic. 6. We will evaluate p.r.n. or in a.m. Margoth Sheth PA-C /[id number]
[2019-05-28] MEDS: Losartan 50 MG Tab PO SCH (08:17)
[2019-05-28] MEDS: metFORMIN 500 MG Tab PO SCH ×2 (08:17→16:44)
[2019-05-28] MEDS: Lactobacillus Rhamnosus GG (Probiotic) Cap PO SCH ×2 (08:17→21:15)
[2019-05-28] MEDS: Simvastatin 20 MG Tab PO SCH (08:18)
[2019-05-28] MEDS: Insulin Lispro 100 Unit/ML 3 ML KwikPen SUBCUT SCH ×4 (08:18→21:16)
[2019-05-28] MEDS: Ciprofloxacin in D5W 400 MG in Premix Bag 1 BAG IV SCH ×4 (08:30→20:15)
[2019-05-28] MEDS: Doxycycline 100 MG in Sodium Chloride 0.9% 100 ML IV SCH ×2 (09:39→21:15)
--- NOTE | 2019-05-28 10:20 | PN ---
DATE OF SERVICE: 05/27/2019 The patient has been afebrile with stable vital signs. The amount of cellulitis has decreased quite a bit over the last 24 hours and the wound on the left walsh is otherwise fairly clean. We will continue the local wound care and present antibiotics, pending C and S results. Mumtaz Miles MD /[id number]
--- NOTE | 2019-05-28 10:45 | PCM.PN ---
- General Info Date of Service: 05/28/19 Subjective Update: There were no acute events overnight. No fevers. The patient reports that her pain is fairly well controlled as long as she stays off of her leg. Wound culture grew out schwarz sensitive staph aureus. She has had some nausea and diarrhea. No points of abdominal pain. Functional Status: Reports: Pain Controlled, Tolerating Diet - Review of Systems General: Denies: Fever Gastrointestinal: Reports: Diarrhea, Nausea 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: Reports: Leg Pain - Patient Data Vitals - Most Recent: Last Vital Signs Temp 36.0 C 05/28/19 07:25 Pulse 85 05/28/19 07:25 Resp 16 05/28/19 07:25 BP 148/82 H 05/28/19 08:17 Pulse Ox 97 05/28/19 07:25 Weight - Most Recent: 89.524 kg I&O - Last 24 Hours: Intake & Output 05/27/19 05/28/19 05/28/19 22:59 06:59 14:59 Intake Total 100 540 Output Total 100 Balance 0 540 Brian Results Last 24 Hours: Microbiology 05/25/19 09:26 Anaerobic Culture - Final Leg, Left NO GROWTH AFTER 3 DAYS 05/25/19 09:26 Gram Stain - Final Leg, Left Wound Culture - Final Staphylococcus Aureus Med Orders - Current: Current Medications Acetaminophen (Tylenol) 650 mg PO Q4H PRN PRN Reason: Pain (Mild 1-3)/fever Last Admin: 05/27/19 09:08 Dose: 650 mg Acetaminophen/Caffeine (Excedrin Tension Headache) 2 tab PO Q6H PRN PRN Reason: Headache Last Admin: 05/27/19 23:55 Dose: 2 tab Dextrose (Glutose 15) 15 gm PO ONETIME PRN PRN Reason: Hypoglycemia Dextrose/Water (Dextrose 50% In Water) 50 ml IV ONETIME PRN PRN Reason: Hypoglycemia Enoxaparin Sodium (Lovenox) 40 mg SUBCUT Q24H [facility] Last Admin: 05/27/19 16:50 Dose: 40 mg Ciprofloxacin/Dextrose 400 mg/ (Premix) 200 mls @ 200 mls/hr IV Q12H [facility]EE Last Admin: 05/28/19 08:30 Dose: 200 mls/hr Doxycycline Hyclate 100 mg/ (Sodium Chloride) 100 mls @ 100 mls/hr IV Q12H [facility] Last Admin: 05/28/19 09:39 Dose: 100 mls/hr Insulin Human Lispro (Humalog) 0 unit SUBCUT QIDACANDBED [facility]; Protocol Last Admin: 05/28/19 08:18 Dose: 2 units Lactobacillus Rhamnosus (Culturelle) 1 cap PO BID [facility] Last Admin: 05/28/19 08:17 Dose: 1 cap Losartan Potassium (Cozaar) 50 mg PO DAILY [facility] Last Admin: 05/28/19 08:17 Dose: 50 mg Metformin HCl (Glucophage) 1,[id number] Last Admin: 05/28/19 08:17 Dose: 1,000 mg Ondansetron HCl (Zofran) 4 mg IV Q4H PRN PRN Reason: Nausea/Vomiting Last Admin: 05/28/19 02:42 Dose: 4 mg Oxycodone HCl (Oxycodone) 5 mg PO Q4H PRN PRN Reason: Pain (moderate 4-6) Last Admin: 05/27/19 20:31 Dose: 5 mg Polyethylene Glycol (Miralax) 17 gm PO DAILY PRN PRN Reason: Constipation Simvastatin (Zocor) 40 mg PO DAILY [facility] Last Admin: 05/28/19 08:18 Dose: 40 mg Sodium Chloride (Saline Flush) 10 ml FLUSH ASDIRECTED PRN PRN Reason: Keep Vein Open Discontinued Medications Bupivacaine HCl (Marcaine 0.5%) Confirm Administered Dose 50 ml .ROUTE .STK-MED ONE Stop: 05/25/19 07:19 Last Admin: 05/25/19 10:33 Dose: 5 ml Fentanyl (Sublimaze) Confirm Administered Dose 100 mcg .ROUTE .STK-MED ONE Stop: 05/25/19 08:43 Hydromorphone HCl (Dilaudid) 0.5 mg IVPUSH Q2H PRN PRN Reason: Pain Last Admin: 05/26/19 22:48 Dose: 0.5 mg Piperacillin Sod/Tazobactam (Sod 3.375 gm/ Sodium Chloride) 50 mls @ 100 mls/ hr IV Q6H [facility] Last Admin: 05/21/19 10:48 Dose: 100 mls/hr Sodium Chloride (Normal Saline) 1,000 mls @ 999 mls/hr IV ASDIRECTED [facility] Lactated Ringer's (Ringers, Lactated) 1,000 mls @ 125 mls/hr IV ASDIRECTED [facility] Last Admin: 05/21/19 23:41 Dose: 125 mls/hr Piperacillin/Tazobactam/ (Dextrose 3.375 gm/ Premix) 50 mls @ 100 mls/hr IV Q6H [facility] Last Admin: 05/28/19 04:33 Dose: 100 mls/hr Vancomycin HCl 1.25 gm/ Sodium (Chloride) 250 mls @ 250 mls/hr IV Q18H [facility] Last Admin: 05/22/19 07:39 Dose: 250 mls/hr Vancomycin HCl 1.75 gm/ Sodium (Chloride) 250 mls @ 166.667 mls/hr IV ONETIME ONE Stop: 05/21/19 14:29 Last Admin: 05/21/19 13:41 Dose: 166.667 mls/hr Vancomycin HCl 1.25 gm/ Sodium (Chloride) 250 mls @ 167 mls/hr IV Q12H [facility] Last Admin: 05/23/19 05:21 Dose: 167 mls/hr Sodium Chloride (Normal Saline) 1,000 mls @ 75 mls/hr IV ASDIRECTED [facility] Last Admin: 05/25/19 00:25 Dose: 75 mls/hr Sodium Chloride (Normal Saline) Confirm Administered Dose 500 mls @ as directed .ROUTE .STK-MED ONE Stop: 05/25/19 09:27 Vancomycin HCl 1.75 gm/ Sodium (Chloride) 250 mls @ 167 mls/hr IV ONETIME ONE Stop: 05/25/19 15:29 Last Admin: 05/25/19 14:11 Dose: 167 mls/hr Vancomycin HCl 1.25 gm/ Sodium (Chloride) 250 mls @ 167 mls/hr IV Q12H [facility] Last Admin: 05/26/19 02:51 Dose: 167 mls/hr Linezolid 600 mg/ Premix 300 mls @ 300 mls/hr IV Q12H [facility] Last Admin: 05/27/19 22:00 Dose: 300 mls/hr Insulin Human Regular (Humulin R) 5 unit SUBCUT ONETIME ONE Stop: 05/21/19 10:29 Last Admin: 05/21/19 10:45 Dose: 5 units Lidocaine/Epinephrine (Xylocaine 1% With Epinephrine 1:100,000) Confirm Administered Dose 50 ml .ROUTE .STK-MED ONE Stop: 05/25/19 07:19 Last Admin: 05/25/19 10:34 Dose: 5 ml Midazolam HCl (Versed 1 Mg/Ml) Confirm Administered Dose 2 mg .ROUTE .STK-MED ONE Stop: 05/25/19 08:44 Oxycodone/Acetaminophen (Percocet 325-5 Mg) 1 tab PO ONETIME ONE Stop: 05/21/19 10:29 Last Admin: 05/21/19 10:47 Dose: 1 tab Propofol (Diprivan 20 Ml) Confirm Administered Dose 200 mg .ROUTE .STK-MED ONE Stop: 05/25/19 08:44 Vancomycin HCl (Vancomycin) 1 gm IV .PHARMACY TO DOSE DEE Vancomycin HCl (Vancomycin) 1 gm IV .PHARMACY TO DOSE DEE Stop: 05/25/19 13:01 - Exam Quality Assessment: No: Supplemental Oxygen General: Alert, Oriented, Cooperative, No Acute Distress Lungs: Normal Respiratory Effort GI/Abdominal Exam: Soft, No Distention Extremities: No Pedal Edema, Other (left leg wrapped with PEÑA from foot to below the knee ) - Problem List Review Problem List Initiated/Reviewed/Updated: Yes - Plan Plan:: ASSESSMENT AND PLAN CELLULITIS LEFT LOWER EXTREMITY - status post I&D by Dr. Miles, culture did grow out pansensitive staph aureus. Antibiotics have been adjusted by the surgical team. Pain is fairly well-controlled. -Currently receiving antibiotic coverage with ciprofloxacin and doxycycline, should be able to discharge home with monotherapy with doxycycline being the preference sugars adequately controlled -Local wound care -Surgical follow-up per Dr. Miles TYPE 2 DIABETES MELLITUS - -Continue metformin 1 g by mouth twice a day -Low-dose sliding scale insulin -4 times a day glucometers MAINTENANCE ISSUES -DVT prophylaxis; Lovenox 40 mg subcutaneous daily -GI prophylaxis; not indicated -Luna catheter; not indicated -Nutrition; consistent carb diet DISPOSITION - anticipate discharge to home after the hospital stay, possibly tomorrow if stable overnight Rayray Yeboah M.D.
[2019-05-28] MEDS: Acetaminophen/Caffeine 500-65 MG Tab PO PRN ×2 (12:35→20:27)
--- NOTE | 2019-05-28 13:42 | OR ---
DATE OF PROCEDURE: 05/25/2019 PREOPERATIVE DIAGNOSIS: Probable abscess, left walsh. POSTOPERATIVE DIAGNOSES: 1. Abscess, left walsh. 2. Underlying necrotic subcutaneous tissue and fascia. OPERATIVE PROCEDURES: 1. Incision and drainage of complex abscess, left walsh, (17293). 2. Debridement of necrotic subcutaneous tissue and fascia, left walsh ([id number]). ANESTHESIA: Local plus IV sedation. INDICATION FOR PROCEDURE: This is a 59-year-old diabetic presenting with cellulitis in the left walsh and calf. The more posterior area has now cleared as far as infection, but she has persistent redness and a vague sense of fluctuance over the distal walsh with persistent surrounding cellulitis. The plan is to proceed with an incision and drainage of that area. Potential risks including bleeding and further infection were reviewed, and the patient wishes to proceed. DETAILS OF PROCEDURE: The patient was taken to the operating room and placed in a supine position. IV sedation was administered, after which the left calf and foot were prepped and draped. The area over the fluctuance in the distal anterior aspect of the left walsh was then anesthetized with 1% lidocaine. A linear incision was made, some creamy purulent material was encountered, and cultures were obtained. The entire abscess was then drained. There was some necrotic subcutaneous tissue and fascia present. This was debrided away until all areas appeared to be viable and clean, and the wound was then packed open with iodoform gauze and a dressing was applied. The patient was taken to the recovery room in satisfactory condition. Mumtaz Miles MD /[id number]
--- NOTE | 2019-05-28 15:24 | PN ---
DATE OF SERVICE: 05/26/2019 The patient has been afebrile with stable vital signs. The Gram Stain and the cultures obtained yesterday showed gram-positive cocci. Despite that area being involved drained, the redness is quite intense in the walsh area. I think we will switch to Zosyn and discontinue the vancomycin as the former generally has better results of soft tissue infections and then I will modify the antibiotic mix once we get some sensitivities. Otherwise begin dressing changes b.i.d. I will do it in the morning and the nursing in the evening and otherwise maximize the activity and work with pulmonary toilet. Mumtaz Miles MD /[id number]
[2019-05-28] MEDS: Enoxaparin 40 MG/0.4 ML Syringe SUBCUT SCH (16:44)
[2019-05-28] MEDS: oxyCODONE 5 MG Tab PO PRN (22:48)
[2019-05-29] MEDS: Insulin Lispro 100 Unit/ML 3 ML KwikPen SUBCUT SCH (07:48)
[2019-05-29] MEDS: Acetaminophen/Caffeine 500-65 MG Tab PO PRN (07:58)
[2019-05-29] MEDS: metFORMIN 500 MG Tab PO SCH (08:00)
[2019-05-29] MEDS: Lactobacillus Rhamnosus GG (Probiotic) Cap PO SCH (08:01)
[2019-05-29] MEDS: Losartan 50 MG Tab PO SCH (08:01)
[2019-05-29 08:02] VITALS: BP 130/63
[2019-05-29 09:00] VITALS: PULSE 77
[2019-05-29] MEDS: Ciprofloxacin in D5W 400 MG in Premix Bag 1 BAG IV SCH ×2 (09:10)
[2019-05-29] MEDS: Doxycycline 100 MG in Sodium Chloride 0.9% 100 ML IV SCH (09:11)
--- NOTE | 2019-05-29 09:21 | PN ---
DATE OF SERVICE: 05/29/2019 SUBJECTIVE: Cherrie continues to have her open incision packed and dressed twice a day. She has been afebrile. Pain has been controlled. She tells surgical staff that she plans to be discharged today. REVIEW OF SYSTEMS: Remainder of review of systems negative for any pertinent positives and negatives. OBJECTIVE: GENERAL: Cherrie Tom is a pleasant 59-year-old female. VITAL SIGNS: TPR is 96.8, 96, 16, blood pressure 130/63. HEENT: Negative. NECK: Supple. HEART: Regular rate and rhythm. LUNGS: Clear. EXTREMITIES: Left anterior lower leg incision is healing well. Redness has decreased. ASSESSMENT: Incision and drainage of left lower leg cellulitis. PLAN: May continue to shower. Follow up with Mumtaz Miles MD, on 06/06/2019 at 11 a.m. Plan would be to continue to pack and change dressing, then eventually put on an Unna boot 1 week at a time. Dressing changes would be to change dressing twice a day preferably after a shower, put 4 x 4 gauze in open areas using a cotton tip applicator. Cover with six 4 x 4 gauze pieces, wrap Kerlix from below toes to below knee. Put Hiram wrap over Kerlix. Work slip given that she may return to work per her request on 06/04/2019. Surgery Department will continue to see the patient until discharge by hospitalist. Margoth Sheth PA-C /[id number]
[2019-05-29] MEDS ORDERED: Doxycycline 100 MG Cap PO SCH (09:30)
[2019-05-29] MEDS: Simvastatin 20 MG Tab PO SCH (09:48)
--- NOTE | 2019-05-29 10:25 | PCM.DCSUM1 ---
Discharge Summary - Hospital Course Brief History: 59-year-old female with history of type 2 diabetes mellitus, essential hypertension who presented with left leg redness, pain and swelling. She was admitted for management of cellulitis involving the left lower leg that was worsening despite outpatient antibiotics. Diagnosis: Stroke: No - Discharge Data Discharge Date: 05/29/19 Discharge Disposition: Home, Self-Care 01 Condition: Good - Discharge Diagnosis/Problem(s) (1) Abscess of left lower leg SNOMED Code(s): 226062153, 042253548 ICD Code: L02.416 - CUTANEOUS ABSCESS OF LEFT LOWER LIMB Status: Acute Current Visit: Yes (2) Cellulitis of left leg SNOMED Code(s): 689393335 ICD Code: L03.116 - CELLULITIS OF LEFT LOWER LIMB Status: Acute Current Visit: Yes (3) Type 2 diabetes mellitus SNOMED Code(s): 21904854 ICD Code: E11.9 - TYPE 2 DIABETES MELLITUS WITHOUT COMPLICATIONS Status: Chronic Current Visit: No Qualifiers: Diabetes mellitus halfway insulin use: without halfway use Diabetes mellitus complication status: without complication Qualified Code(s): E11.9 - Type 2 diabetes mellitus without complications - Patient Summary/Data Operative Procedure(s) Performed: Incision and debridement of abscess involving the left lower leg as well as debridement of the necrotic tissue in the left lower leg around the abscess. Operative procedure was performed by Dr. Miles. Consults: Consultations 05/28/19 07:10 Consult to Case Management/Professional Builder [CONS] Routine Comment: plan discharge - 05/29/19 Physician Instructions: dressing changes bid Service(s) to be Consulted: Case Management Reason for Consult: Home Health Care and teach son dressing changes Special Instructions: Pack and dress left lower leg open incision bid Hospital Course: Cherrie presented to the emergency room with resistant and worsening swelling and pain as well as redness involving the left lower leg. She had tried 2 different antibiotics to manage the cellulitis is now patient but was getting worse despite these interventions. She was started on broad-spectrum antibiotics at the time of admission. These included vancomycin and Piperacillin/tazobactam. The morning after admission she had an ultrasound of her left lower extremity that did not reveal any evidence for abscess in the area. Surgical team was consulted and with no obvious drainable fluid collection surgical intervention was not recommended at that time. Over the next 3 days the patient had some improvement in the surrounding cellulitis but had persistent pain as well as significant erythema surrounding the area that was initially concerning for abscess. On the fourth day of hospitalization the patient was taken to the operating room and had an incision and drainage. An abscess was discovered at the time of surgery. There was also some necrotic tissue in the area which was debrided. Cultures were obtained at the time of surgery. Over the next several days she did have slow but steady improvement in the cellulitis. Twice daily dressing changes were continued in the area that was abraded. The area continued to improve with less swelling and redness each day. Her white count has been normal for several days. She has not had any fevers. Pain has been steadily improving but has not resolved. The cultures from the surgical debridement ultimately grew out pansensitive staph aureus. Antibiotics were changed to include both doxycycline and ciprofloxacin prior to discharge. At the time of discharge the plan is for her to continue with just doxycycline. She has been tolerating the antibiotics well. She has been up and moving around. Pain is controlled with her oral pain medications. She feels well enough to go home at this time. Her son will be helping her with dressing changes. The plan is for her to have 4-1/2 additional days of antibiotic therapy in addition to the dressing changes. She will be following up with the surgical team next week. Her hospital stay was complicated and quite prolonged because of the complex infection involving her left lower extremity. Her hospital stay was prolonged well beyond the expected 96 hours because of the complexity of this infection that was not first seen at the time of admission. - Patient Instructions Diet: Diabetic Diet Activity: As Tolerated Driving: Do Not Drive (if taking pain pills ) Showering/Bathing: May Shower Wound/Incision Care: Keep Operative Site/Wound Site Clean and Dry Notify Provider of: Fever, Increased Pain, Drainage - Discharge Plan *PRESCRIPTION DRUG MONITORING PROGRAM REVIEWED*: Not Applicable *COPY OF PRESCRIPTION DRUG MONITORING REPORT IN PATIENT MAYELIN: Not Applicable Prescriptions/Med Rec: Doxycycline [Vibramycin] 100 mg PO BID #11 cap Losartan [Cozaar] 50 mg PO DAILY #30 tablet metFORMIN [Glucophage] 1,000 mg PO BIDM #120 tablet oxyCODONE 5 mg PO Q4H PRN #25 tablet PRN Reason: Pain (Moderate 4-6) Simvastatin 20 mg PO BEDTIME #30 tablet Home Medications: Home Meds Acetaminophen/Caffeine [Excedrin Tension Headache] 2 tab PO ASDIRECTED PRN 07/06 [History] Cholecalciferol (Vitamin D3) [Vitamin D3] 1,000 unit PO DAILY 07/28/17 [History] Doxycycline [Vibramycin] 100 mg PO BID #11 cap 05/29/19 [Rx] Losartan [Cozaar] 50 mg PO DAILY #30 tablet 05/29/19 [Rx] Simvastatin 20 mg PO BEDTIME #30 tablet 05/29/19 [Rx] metFORMIN [Glucophage] 1,000 mg PO BIDM #120 tablet 05/29/19 [Rx] oxyCODONE 5 mg PO Q4H PRN #25 tablet 05/29/19 [Rx] Oxygen Therapy Mode: Room Air Patient Handouts: Cellulitis, Adult Referrals: Mumtaz Miles MD [Physician] - 06/06/19 11:00 am (If you need to change your appointment time call surgery dept at [phone]) Blaise Dumont MD [Primary Care Provider] - 06/05/19 1:40 pm ([facility]) - Discharge Summary/Plan Comment DC Time >30 min.: No - Patient Data Vitals - Most Recent: Last Vital Signs Temp 36.5 C 05/29/19 08:00 Pulse 77 05/29/19 08:00 Resp 16 05/29/19 08:00 BP 130/63 05/29/19 08:01 Pulse Ox 98 05/29/19 08:00 Weight - Most Recent: 89.524 kg I&O - Last 24 hours: Intake & Output 05/28/19 05/29/19 05/29/19 22:59 06:59 14:59 Intake Total 480 Balance 480 RAZA Results - Last 24 hrs: Microbiology 05/25/19 09:26 Anaerobic Culture - Final Leg, Left NO GROWTH AFTER 3 DAYS 05/25/19 09:26 Gram Stain - Final Leg, Left Wound Culture - Final Staphylococcus Aureus Med Orders - Current: Current Medications Acetaminophen (Tylenol) 650 mg PO Q4H PRN PRN Reason: Pain (Mild 1-3)/fever Last Admin: 05/27/19 09:08 Dose: 650 mg Acetaminophen/Caffeine (Excedrin Tension Headache) 2 tab PO Q6H PRN PRN Reason: Headache Last Admin: 05/29/19 07:58 Dose: 2 tab Dextrose (Glutose 15) 15 gm PO ONETIME PRN PRN Reason: Hypoglycemia Dextrose/Water (Dextrose 50% In Water) 50 ml IV ONETIME PRN PRN Reason: Hypoglycemia Doxycycline Hyclate (Vibramycin) 100 mg PO BID [facility] Enoxaparin Sodium (Lovenox) 40 mg SUBCUT Q24H [facility] Last Admin: 05/28/19 16:44 Dose: 40 mg Insulin Human Lispro (Humalog) 0 unit SUBCUT QIDACANDBED [facility]; Protocol Last Admin: 05/29/19 07:48 Dose: 1 units Lactobacillus Rhamnosus (Culturelle) 1 cap PO BID [facility] Last Admin: 05/29/19 08:01 Dose: 1 cap Losartan Potassium (Cozaar) 50 mg PO DAILY [facility] Last Admin: 05/29/19 08:01 Dose: 50 mg Metformin HCl (Glucophage) 1,000 mg PO BIDWW [facility] Last Admin: 05/29/19 08:00 Dose: 1,000 mg Ondansetron HCl (Zofran) 4 mg IV Q4H PRN PRN Reason: Nausea/Vomiting Last Admin: 05/28/19 02:42 Dose: 4 mg Oxycodone HCl (Oxycodone) 5 mg PO Q4H PRN PRN Reason: Pain (moderate 4-6) Last Admin: 05/28/19 22:48 Dose: 5 mg Polyethylene Glycol (Miralax) 17 gm PO DAILY PRN PRN Reason: Constipation Simvastatin (Zocor) 40 mg PO DAILY [facility] Last Admin: 05/29/19 09:48 Dose: 40 mg Sodium Chloride (Saline Flush) 10 ml FLUSH ASDIRECTED PRN PRN Reason: Keep Vein Open Discontinued Medications Bupivacaine HCl (Marcaine 0.5%) Confirm Administered Dose 50 ml .ROUTE .STK-MED ONE Stop: 05/25/19 07:19 Last Admin: 05/25/19 10:33 Dose: 5 ml Fentanyl (Sublimaze) Confirm Administered Dose 100 mcg .ROUTE .STK-MED ONE Stop: 05/25/19 08:43 Hydromorphone HCl (Dilaudid) 0.5 mg IVPUSH Q2H PRN PRN Reason: Pain Last Admin: 05/26/19 22:48 Dose: 0.5 mg Piperacillin Sod/Tazobactam (Sod 3.375 gm/ Sodium Chloride) 50 mls @ 100 mls/ hr IV Q6H [facility] Last Admin: 05/21/19 10:48 Dose: 100 mls/hr Sodium Chloride (Normal Saline) 1,000 mls @ 999 mls/hr IV ASDIRECTED [facility] Lactated Ringer's (Ringers, Lactated) 1,000 mls @ 125 mls/hr IV ASDIRECTED [facility] Last Admin: 05/21/19 23:41 Dose: 125 mls/hr Piperacillin/Tazobactam/ (Dextrose 3.375 gm/ Premix) 50 mls @ 100 mls/hr IV Q6H [facility] Last Admin: 05/28/19 04:33 Dose: 100 mls/hr Vancomycin HCl 1.25 gm/ Sodium (Chloride) 250 mls @ 250 mls/hr IV Q18H [facility] Last Admin: 05/22/19 07:39 Dose: 250 mls/hr Vancomycin HCl 1.75 gm/ Sodium (Chloride) 250 mls @ 166.667 mls/hr IV ONETIME ONE Stop: 05/21/19 14:29 Last Admin: 05/21/19 13:41 Dose: 166.667 mls/hr Vancomycin HCl 1.25 gm/ Sodium (Chloride) 250 mls @ 167 mls/hr IV Q12H [facility] Last Admin: 05/23/19 05:21 Dose: 167 mls/hr Sodium Chloride (Normal Saline) 1,000 mls @ 75 mls/hr IV ASDIRECTED [facility] Last Admin: 05/25/19 00:25 Dose: 75 mls/hr Sodium Chloride (Normal Saline) Confirm Administered Dose 500 mls @ as directed .ROUTE .STK-MED ONE Stop: 05/25/19 09:27 Vancomycin HCl 1.75 gm/ Sodium (Chloride) 250 mls @ 167 mls/hr IV ONETIME ONE Stop: 05/25/19 15:29 Last Admin: 05/25/19 14:11 Dose: 167 mls/hr Vancomycin HCl 1.25 gm/ Sodium (Chloride) 250 mls @ 167 mls/hr IV Q12H [facility] Last Admin: 05/26/19 02:51 Dose: 167 mls/hr Linezolid 600 mg/ Premix 300 mls @ 300 mls/hr IV Q12H [facility] Last Admin: 05/27/19 22:00 Dose: 300 mls/hr Ciprofloxacin/Dextrose 400 mg/ (Premix) 200 mls @ 200 mls/hr IV Q12H [facility] Last Admin: 05/29/19 09:10 Dose: Not Given Doxycycline Hyclate 100 mg/ (Sodium Chloride) 100 mls @ 100 mls/hr IV Q12H [facility] Last Admin: 05/29/19 09:11 Dose: Not Given Insulin Human Regular (Humulin R) 5 unit SUBCUT ONETIME ONE Stop: 05/21/19 10:29 Last Admin: 05/21/19 10:45 Dose: 5 units Lidocaine/Epinephrine (Xylocaine 1% With Epinephrine 1:100,000) Confirm Administered Dose 50 ml .ROUTE .STK-MED ONE Stop: 05/25/19 07:19 Last Admin: 05/25/19 10:34 Dose: 5 ml Midazolam HCl (Versed 1 Mg/Ml) Confirm Administered Dose 2 mg .ROUTE .STK-MED ONE Stop: 05/25/19 08:44 Oxycodone/Acetaminophen (Percocet 325-5 Mg) 1 tab PO ONETIME ONE Stop: 05/21/19 10:29 Last Admin: 05/21/19 10:47 Dose: 1 tab Propofol (Diprivan 20 Ml) Confirm Administered Dose 200 mg .ROUTE .STK-MED ONE Stop: 05/25/19 08:44 Vancomycin HCl (Vancomycin) 1 gm IV .PHARMACY TO DOSE [facility] Vancomycin HCl (Vancomycin) 1 gm IV .PHARMACY TO DOSE [facility] Stop: 05/25/19 13:01 - Exam Quality Assessment: Denies: Supplemental Oxygen General: Reports: Alert, Oriented, Cooperative, No Acute Distress Lungs: Reports: Normal Respiratory Effort GI/Abdominal Exam: Soft, No Distention Extremities: Other (left lower leg wrapped with PEÑA) Psy/Mental Status: Reports: Alert, Normal Affect
== END 2019-05-29 11:30 | disposition home or self-care (01) | DRG 603 ==
LOC: JP.ED 08:12 → JP.MS 11:10
PROVIDERS: ADMIT Hospitalist; ATTEND Internal Medicine
PROC: 0Y9J0ZX Drainage of Left Lower Leg, Open Approach, Diagnostic (ICD-10-PCS; principal; 2019-05-25)
DX: L03.116 Cellulitis of left lower limb (principal); L02.416 Cutaneous abscess of left lower limb; E11.65 Type 2 diabetes mellitus with hyperglycemia; B96.89 Other specified bacterial agents as the cause of diseases classified elsewhere; Z86.718 Personal history of other venous thrombosis and embolism; I10 Essential (primary) hypertension; E78.00 Pure hypercholesterolemia, unspecified; Z87.442 Personal history of urinary calculi; G43.909 Migraine, unspecified, not intractable, without status migrainosus; M48.061 Spinal stenosis, lumbar region without neurogenic claudication; Z86.010 Personal history of colon polyps; Z88.5 Allergy status to narcotic agent; Z79.84 Long term (current) use of oral hypoglycemic drugs; Z79.899 Other long term (current) drug therapy
CPT/HCPCS: 36415; 76881-LT; 80048; 80053; 82962; 83605; 85025; 86140; 87040; 87070; 87075; 87077; 87186; 87205; 88304; 93005; 93971-26-LT; 93971-LT; 96365; 99284-25; A9270-GY; J0744; J1170; J1650; J1815; J1815-GY; J2020; J2250; J2405; J2543; J2704; J3010; J3370; J3490; J7030; J7040; J7050; J7120

== ENCOUNTER 2021-05-05 21:55 | Emergency (ER) | payer MEDICAID ==
[2021-05-05 22:47] VITALS: BP 137/71; PULSE 119
[2021-05-05] MEDS ORDERED: Sodium Chloride 0.9% 10 ML Syringe FLUSH PRN (22:58)
[2021-05-05] MEDS ORDERED: Ondansetron 4 MG/2 ML SDV IVPUSH ONE (22:59)
[2021-05-05] MEDS ORDERED: Lactated Ringers 1,000 ML IV SCH (23:00)
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
[2021-05-06] MEDS ORDERED: Lactated Ringers 1,000 ML IV ONE (00:32)
== END 2021-05-06 02:12 | disposition home or self-care (01) ==
LOC: JP.ED 21:55
DX: K52.9 Noninfective gastroenteritis and colitis, unspecified (principal); E11.9 Type 2 diabetes mellitus without complications; I10 Essential (primary) hypertension; E78.00 Pure hypercholesterolemia, unspecified; Z88.5 Allergy status to narcotic agent; Z79.84 Long term (current) use of oral hypoglycemic drugs; Z79.899 Other long term (current) drug therapy
CPT/HCPCS: 36415; 80053; 81001; 83605; 83690; 84145; 84484; 85025; 86140; 87086; 87088; 87186; 96374; 99284; J2405; J7120

== ENCOUNTER 2021-09-01 14:59 | Emergency (ER) | payer MEDICAID ==
[2021-09-01] MEDS ORDERED: Ondansetron 4 MG Tab.DIS PO ONE (15:39)
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
[2021-09-01 16:40] LABS: CORONAVIRUS COVID-19 NAA POSITIVE (NEGATIVE)
[2021-09-01] MEDS ORDERED: LORazepam 2 MG/ML SDV IVPUSH ONE (16:46)
[2021-09-01] MEDS ORDERED: Sodium Chloride 0.9% 10 ML Syringe FLUSH PRN (16:46)
[2021-09-01] MEDS ORDERED: Glucagon,Human Recombinant 1 MG Vial IM PRN (16:47)
[2021-09-01] MEDS ORDERED: Insulin Regular, Human 100 Units/ML 3 ML Vial SUBCUT ONE (16:47)
[2021-09-01] MEDS ORDERED: 50% Dextrose in Water 50 ML Syringe IVPUSH PRN (16:47)
[2021-09-01] MEDS ORDERED: Bamlanivimab 700 MG, ETESEVIMAB 1,400 MG in Sodium Chloride 0.9% 100 ML IV ONE (17:30)
[2021-09-01] MEDS ORDERED: diphenhydrAMINE 50 MG/ML SDV IVPUSH PRN (17:30)
[2021-09-01] MEDS ORDERED: methylPREDNISolone Sodium Succinate 125 MG/2 ML SDV IVPUSH PRN (17:30)
[2021-09-01] MEDS ORDERED: Famotidine 20 MG/2 ML SDV IV PRN (17:30)
[2021-09-01] MEDS ORDERED: EPINEPHrine 1 MG/ML SDV IM PRN (17:30)
[2021-09-01] MEDS ORDERED: Acetaminophen 325 MG Tab PO PRN (17:30)
[2021-09-01 18:29] VITALS: BP 164/89; PULSE 108
== END 2021-09-01 19:26 | disposition home or self-care (01) ==
LOC: JP.ED 14:59
DX: U07.1 COVID-19 (principal); E11.9 Type 2 diabetes mellitus without complications; E78.00 Pure hypercholesterolemia, unspecified; I10 Essential (primary) hypertension; Z79.84 Long term (current) use of oral hypoglycemic drugs; Z79.899 Other long term (current) drug therapy; Z88.5 Allergy status to narcotic agent
CPT/HCPCS: 0241U; 36415; 80053; 85025; 99284; A9270; M0245; Q0245; J1815-GY

== ENCOUNTER → 2022-08-27 | Day surgery (SDC) | payer MEDICAID ==
[2022-08-27 08:51] VITALS: BP 158/88; PULSE 86
== END ==
LOC: JP.SDS 06:26
PROVIDERS: ATTEND Student in an Organized Health Care Education/Training Program
DX: Z12.11 Encounter for screening for malignant neoplasm of colon (principal); D12.3 Benign neoplasm of transverse colon; K57.30 Diverticulosis of large intestine without perforation or abscess without bleeding; I10 Essential (primary) hypertension; E78.5 Hyperlipidemia, unspecified; E11.9 Type 2 diabetes mellitus without complications; E66.9 Obesity, unspecified; Z68.41 Body mass index [BMI] 40.0-44.9, adult; Z86.010 Personal history of colon polyps; Z79.899 Other long term (current) drug therapy; Z88.6 Allergy status to analgesic agent
CPT/HCPCS: 45385; J2250; J2704; J3010; J7120; 88305

== ENCOUNTER 2023-04-28 10:56 | Emergency (ER) | payer MEDICAID ==
[2023-04-28] MEDS ORDERED: Sodium Chloride 0.9% 10 ML Syringe FLUSH PRN (11:53)
[2023-04-28] MEDS ORDERED: Sodium Chloride 0.9% 1,000 ML IV STA (11:53)
[2023-04-28] MEDS ORDERED: Ondansetron 4 MG/2 ML SDV IVPUSH ONE (11:54)
[2023-04-28] MEDS ORDERED: Sodium Chloride 0.9% 10 ML SDV FLUSH ONE (11:55)
[2023-04-28] MEDS ORDERED: Iopamidol 612 MG/ML 100 ML Bottle IV PRN (11:55)
[2023-04-28] MEDS ORDERED: Sodium Chloride 0.9% 100 ML IV SCH (12:00)
[2023-04-28 12:26] LABS: BASOPHILS ABSOLUTE AUTO 0.03 K/uL (0.00-0.10); BASOPHILS PERCENT AUTO 0.2 % (0.1-1.3); EOSINOPHILS PERCENT AUTO 0.1 % (0.0-5.4); HEMATOCRIT 38.3 % (34.3-46.0); HEMOGLOBIN 12.7 g/dL (11.2-15.5); IMMATURE GRAN PERCENT AUTO 0.6 % (0.0-0.7); LYMPHOCYTES ABSOLUTE AUTO 1.55 K/uL (0.8-3.3); LYMPHOCYTES PERCENT AUTO 9.6 % (11.4-47.7); MEAN CORPUSCULAR HEMOGLOBIN 29.1 pg (31.6-35.5); MEAN CORPUSCULAR HGB CONC 33.2 g/dL (31.6-35.5); MEAN CORPUSCULAR VOLUME 87.8 fL (81.4-99.0); MONOCYTES ABSOLUTE AUTO 1.07 K/uL (0.20-0.90); MONOCYTES PERCENT AUTO 6.6 % (3.3-12.6); NEUTROPHILS ABSOLUTE AUTO 13.42 K/uL (1.0-7.6); NEUTROPHILS PERCENT AUTO 82.9 % (40.0-78.1); PLATELET COUNT,PLT 283 K/uL (130-375); RED BLOOD CELL COUNT 4.36 M/uL (3.77-5.24); WHITE BLOOD CELL COUNT,WBC 16.2 K/uL (3.2-11.0)
[2023-04-28 12:37] LABS: CREATININE 1.9 mg/dL (0.5-1.0); EST CRCL DRUG DOSING (CG) 23.66 mL/min; ESTIMATED GFR 29 mL/min (>60)
[2023-04-28 12:39] LABS: EOSINOPHILS ABSOLUTE AUTO 0.02 K/uL (0.00-0.40)
[2023-04-28 12:50] LABS: APPEARANCE,URINE CLOUDY (CLEAR); BILIRUBIN,URINE NEGATIVE (NEGATIVE); COLOR,URINE YELLOW (YELLOW); GLUCOSE,URINE 500 mg/dL (NEGATIVE); KETONES,URINE 15 mg/dL (NEGATIVE); LEUKOCYTE ESTERASE,URINE TRACE (NEGATIVE); NITRITE,URINE POSITIVE (NEGATIVE); OCCULT BLOOD,URINE SMALL (NEGATIVE); PH,URINE 5.5 (5.0-8.0); PROTEIN,URINE 100 mg/dL (NEGATIVE); UROBILINOGEN,URINE 0.2 EU/dL (0.2-1.0)
[2023-04-28 13:01] LABS: AMORPHOUS SEDIMENT,URINE NOT SEEN; BACTERIA,URINE MANY; EPITHELIAL CELLS,URINE FEW; MUCUS,URINE NOT SEEN; RBC,URINE 0-5 (0-5); WBC,URINE 50-75 (0-5)
[2023-04-28 13:08] LABS: A/G RATIO 0.8 (1.2-2.2); ALANINE AMINOTRANSFERASE,ALT 25 U/L (12-78); ALBUMIN 3.4 g/dL (3.4-5.0); ALKALINE PHOSPHATASE 78 U/L (46-116); ASPARTATE AMNIOTRANSFERASE,AST 16 U/L (15-37); BILIRUBIN TOTAL 0.5 mg/dL (0.2-1.0); BLOOD UREA NITROGEN,BUN 28 mg/dL (7-18); CALCIUM 9.1 mg/dL (8.5-10.1); CARBON DIOXIDE,CO2 24 mmol/L (21-32); CHLORIDE,CL 101 mmol/L (100-108); GLUCOSE RANDOM 280 mg/dL (74-106); POTASSIUM,K 4.2 mmol/L (3.6-5.2); PROTEIN TOTAL,TP 7.8 g/dL (6.4-8.2); SODIUM,NA 136 mmol/L (140-148)
[2023-04-28 13:09] LABS: ANION GAP 15.2 mmol/L (5.0-14.0)
[2023-04-28] MEDS ORDERED: Levofloxacin/Dextrose 5%-Water 750 MG in Premix Bag 1 BAG IV ONE (14:32)
[2023-04-28] MEDS ORDERED: Lactated Ringers 1,000 ML IV ONE (16:03)
[2023-04-28 17:39] VITALS: BP 143/82; PULSE 110
== END 2023-04-28 18:13 ==
LOC: JP.ED 10:56
DX: A41.9 Sepsis, unspecified organism (principal); R65.20 Severe sepsis without septic shock; N17.9 Acute kidney failure, unspecified; N30.00 Acute cystitis without hematuria; N13.2 Hydronephrosis with renal and ureteral calculous obstruction; R09.02 Hypoxemia; E78.00 Pure hypercholesterolemia, unspecified; I10 Essential (primary) hypertension; E11.9 Type 2 diabetes mellitus without complications; E66.9 Obesity, unspecified; Z68.41 Body mass index [BMI] 40.0-44.9, adult; Z86.16 Personal history of COVID-19; Z88.5 Allergy status to narcotic agent; Z86.73 Personal history of transient ischemic attack (TIA), and cerebral infarction without residual deficits; Z79.82 Long term (current) use of aspirin; Z79.84 Long term (current) use of oral hypoglycemic drugs; Z79.899 Other long term (current) drug therapy
CPT/HCPCS: 36415; 71045; 74177; 80053; 81001; 83605; 83690; 84145; 85025; 87040; 87086; 87088; 87186; 96361; 96365; 96375; 99285; J1956; J2405; J3490; J7030; J7120; Q9967